=== PATIENT | female | born 1950 | race Caucasian/White ===

== ENCOUNTER 2016-10-24 11:41 | Emergency (ER) | payer BC, MEDICARE ==
[~2016-10-24] VITALS: Ht 160 cm; Wt 77.1 kg
[2016-10-24] MEDS ORDERED: XANA0.5T PO (11:53)
[2016-10-24] MEDS ORDERED: BACL-67 PO (11:53)
[2016-10-24] MEDS ORDERED: TRAZ50TA4 PO (11:53)
[2016-10-24] MEDS ORDERED: HYDR-3713 PO (11:53)
[2016-10-24] MEDS ORDERED: KETOROLAC 60 MG/2 ML VIAL (J1885) IM ONE (12:30)
--- NOTE | 2016-10-24 12:53 | REP ---
Clinical: Fall. Contusion. Technique: Frontal view of the chest with multiple views of the right hemithorax. Findings: Nondisplaced posterolateral right sixth and seventh rib fractures identified. Mediastinum and cardiac silhouette normal. No obvious consolidation/contusion, effusion, or pneumothorax. Impression: Acute posterolateral right sixth and seventh rib fractures. Signed by Carlton Wright MD 10/24/2016 12:45 P
--- NOTE | 2016-10-24 12:55 | REP ---
Clinical: Trauma. Fall. Technique: AP and frog lateral views of the right femur. Findings: Age-related degenerative changes at the hip and knee joint. No acute fracture or dislocation. Impression: No acute fracture or dislocation. Signed by Carlton Wright MD 10/24/2016 12:47 P
--- NOTE | 2016-10-24 12:57 | REP ---
Clinical: Trauma. Fall. Technique: AP and lateral views of the right tibia / fibula. Findings: Moderate early advanced tricompartmental osteoarthritic degenerative changes to the knee. No acute fracture or dislocation identified. Impression: No acute fracture or dislocation. Signed by Carlton Wright MD 10/24/2016 12:49 P
--- NOTE | 2016-10-24 13:53 | REP ---
Clinical: Trauma. Rib fractures. Findings: Nondisplaced lateral right sixth, seventh, and eighth rib fractures identified. The bilateral lung lechuga are well-aerated and clear. No pulmonary parenchymal consolidation/contusion, effusion, or pneumothorax. Tracheobronchial tree is patent. The mediastinum is unremarkable. Limited upper abdomen demonstrates prior cholecystectomy and gastric bypass surgery along with 3 cm left adrenal myolipoma. Impression: 1. Nondisplaced lateral right 6th - 8th rib fractures. 2. No associated mediastinal or pleuroparenchymal process. 3. 3 cm left adrenal benign myolipoma. Signed by Carlton Wright MD 10/24/2016 01:45 P
[2016-10-24] MEDS ORDERED: PERCOCET 5MG/325MG TAB PO ONE (14:00)
[2016-10-24] MEDS ORDERED: PERC5TAB6 PO (15:30)
[2016-10-24 16:13] VITALS: BP 113/61
[2016-10-24] MEDS ORDERED: CALCIUM CARBONATE 500 MG CHEW U/D PO ONE (16:15)
== END 2016-10-24 16:18 | disposition home or self-care (01) ==
LOC: M ED 12:32
DX: S22.41XA Multiple fractures of ribs, right side, initial encounter for closed fracture (principal); S80.11XA Contusion of right lower leg, initial encounter; S80.12XA Contusion of left lower leg, initial encounter; W10.8XXA Fall (on) (from) other stairs and steps, initial encounter; Y92.099 Unspecified place in other non-institutional residence as the place of occurrence of the external cause; Y93.01 Activity, walking, marching and hiking; Y99.9 Unspecified external cause status
CPT/HCPCS: 71101; 71250; 73552; 73590; 94010; 96372; 99283; J1885

== ENCOUNTER 2016-11-03 16:44 | Emergency (ER) | payer MEDICARE ==
[~2016-11-03] VITALS: Ht 162.6 cm; Wt 79.4 kg
[~2016-11-03 16:44] MED LIST: BACL-67 PO; HYDR-3713 PO; PERC5TAB6 PO; TRAZ50TA4 PO; XANA0.5T PO
[2016-11-03] MEDS ORDERED: BACT800T5 PO (16:49)
--- NOTE | 2016-11-03 18:11 | REP ---
LEFT LOWER EXTREMITY DOPPLER VENOUS ULTRASOUND: 11/03/2016: Clinical history: Lower extremity pain, swelling upper calf after a fall.Comparison: None Technique: The deep venous system of the left lower extremity is evaluated with catrer scale imaging, compression ultrasound, color imaging and duplex Doppler interrogation. Examination from the groin through the popliteal fossa into the proximal calf. Findings: There is full compressibility from the common femoral vein in the inguinal region through the popliteal vein. Color imaging confirms patency throughout the course of the deep venous system. There is respiratory variation and augmented flow at all levels. There was limited compression of the distal SFV due to poor patient tolerance. No evidence of DVT. In the proximal calf. There is a prominent erythematous swollen region and a skin eschar with a complex fluid collection seen underneath 4.4 x 4.6 x 1.1 cm suggesting a hematoma in the calf. Impression: 1. No Doppler venous ultrasound evidence of DVT in the left lower extremity. 2. Complex fluid collection in the proximal calf near the area of erythema and skin eschar, likely hematoma at 4.6 x 4.4 x 1.1 cm. Signed by Tod Bolanos MD 11/04/2016 02:48 P
[2016-11-03] MEDS ORDERED: CLIN1CAP5 PO (18:53)
[2016-11-03 18:54] VITALS: BP 115/61
== END 2016-11-03 19:05 | disposition home or self-care (01) ==
LOC: M ED 18:04
DX: S81.802A Unspecified open wound, left lower leg, initial encounter (principal); R60.0 Localized edema; W19.XXXA Unspecified fall, initial encounter; Y92.89 Other specified places as the place of occurrence of the external cause; Y93.89 Activity, other specified; Y99.9 Unspecified external cause status
CPT/HCPCS: 93971; 99282; G0463

== ENCOUNTER → 2016-11-23 | Outpatient (REF) | payer MEDICARE ==
[~2016-11-23] MED LIST changes: +BACT800T5 PO; +CLIN1CAP5 PO
[2016-11-23 17:50] LABS: MEAN CORPUSCULAR HEMOGLOBIN 31.9 pg (27.0-33.0); MEAN CORPUSCULAR HGB CONC 33.2 g/dl (32.0-36.5); MEAN CORPUSCULAR VOLUME 96.3 fl (80.0-96.0); RED CELL DISTRIBUTION WIDTH 12.5 % (11.5-14.5); WHITE BLOOD COUNT 8.9 K/mm3 (4.0-10.0)
[2016-11-23 18:14] LABS: ALBUMIN 3.7 GM/DL (3.2-5.2); ALBUMIN/GLOBULIN RATIO 1.23 (1.00-1.93); ALKALINE PHOSPHATASE 99 U/L (45-117); ALT/SGPT 25 U/L (12-78); ANION GAP 8 MEQ/L (8-16); AST/SGOT 17 U/L (15-37); BILIRUBIN,TOTAL 0.4 MG/DL (0.2-1.0); BLOOD UREA NITROGEN 11 MG/DL (7-18); CALCIUM LEVEL 9.2 MG/DL (8.8-10.2); CARBON DIOXIDE LEVEL 30 MEQ/L (21-32); CHLORIDE LEVEL 105 MEQ/L (98-107); CHOLESTEROL LEVEL 168 MG/DL (<200); CREATININE FOR GFR 0.75 MG/DL (0.55-1.02); GLOMERULAR FILTRATION RATE > 60.0 (>45); GLUCOSE, FASTING 94 MG/DL (80-110); SODIUM LEVEL 143 MEQ/L (136-145); TOTAL PROTEIN 6.7 GM/DL (6.4-8.2); TRIGLYCERIDES LEVEL 119 MG/DL (<150)
[2016-11-23 19:39] LABS: BASOPHILS 3 % (0-4); EOSINOPHILS 2 % (0-5)
== END ==
LOC: M SFHCLERA 08:53
PROVIDERS: ATTEND Family Medicine
DX: L03.90 Cellulitis, unspecified (principal); E78.00 Pure hypercholesterolemia, unspecified; F17.200 Nicotine dependence, unspecified, uncomplicated; G89.29 Other chronic pain; G47.01 Insomnia due to medical condition
CPT/HCPCS: 80053; 80061; 83036; 85007; 85027; G0463

== ENCOUNTER → 2017-10-07 | Outpatient (REF) | payer MEDICARE ==
[2017-10-07 20:32] LABS: HEMATOCRIT 40.2 % (36.0-47.0); HEMOGLOBIN 13.1 g/dl (12.0-16.0); MEAN CORPUSCULAR HEMOGLOBIN 30.8 pg (27.0-33.0); MEAN CORPUSCULAR HGB CONC 32.6 g/dl (32.0-36.5); MEAN CORPUSCULAR VOLUME 94.4 fl (80.0-96.0); PLATELET COUNT, AUTOMATED 263 10^3/uL (150-450); RED BLOOD COUNT 4.26 10^6/uL (4.00-5.40); RED CELL DISTRIBUTION WIDTH 12.9 % (11.5-14.5); WHITE BLOOD COUNT 12.2 10^3/uL (4.0-10.0)
[2017-10-07 21:37] LABS: ALBUMIN 3.8 GM/DL (3.2-5.2); ALBUMIN/GLOBULIN RATIO 1.27 (1.00-1.93); ALKALINE PHOSPHATASE 72 U/L (45-117); ALT/SGPT 21 U/L (12-78); AMYLASE 42 U/L (25-115); ANION GAP 7 MEQ/L (8-16); AST/SGOT 14 U/L (7-37); BILIRUBIN,TOTAL 0.3 MG/DL (0.2-1.0); BLOOD UREA NITROGEN 18 MG/DL (7-18); CALCIUM LEVEL 9.1 MG/DL (8.8-10.2); CARBON DIOXIDE LEVEL 29 MEQ/L (21-32); CHLORIDE LEVEL 109 MEQ/L (98-107); CREATININE FOR GFR 0.86 MG/DL (0.55-1.30); GLOMERULAR FILTRATION RATE > 60.0 (>45); GLUCOSE, FASTING 68 MG/DL (70-100); LIPASE 109 U/L (73-393); POTASSIUM SERUM 4.6 MEQ/L (3.5-5.1); SODIUM LEVEL 145 MEQ/L (136-145); TOTAL PROTEIN 6.8 GM/DL (6.4-8.2)
== END ==
LOC: M SFHCLERA 18:11
DX: R10.13 Epigastric pain (principal)
CPT/HCPCS: 82150

== ENCOUNTER → 2017-10-12 | Outpatient (REF) | payer MEDICARE ==
[2017-10-15 00:06] LABS: H PYLORI STOOL ANTIGEN Negative (Negative)
== END ==
LOC: M SFHCLERA 16:23
DX: R10.11 Right upper quadrant pain (principal)
CPT/HCPCS: 87338

== ENCOUNTER → 2017-10-14 | Outpatient (CLI) | payer MEDICARE | LOC: M RAD 07:22 | DX: R10.9 Unspecified abdominal pain (principal) | CPT/HCPCS: 76705 ==

== ENCOUNTER → 2017-10-27 | Outpatient (CLI) | payer MEDICARE ==
[~2017-10-27] MED LIST changes: -BACL-67 PO; -BACT800T5 PO; -CLIN1CAP5 PO; +GASTROGRAFIN SOLUTION 30ML (Q9963) As Ordered; -HYDR-3713 PO; +ISOVUE-370 76% 100ML VIAL (Q9967) As Ordered; -PERC5TAB6 PO; -TRAZ50TA4 PO; -XANA0.5T PO
== END ==
LOC: M RAD 12:02
DX: K76.9 Liver disease, unspecified (principal)
CPT/HCPCS: Q9963

== ENCOUNTER → 2017-11-14 | Outpatient (CLI) | payer MEDICARE | LOC: M RAD 15:23 | DX: Z12.31 Encounter for screening mammogram for malignant neoplasm of breast (principal); Z80.3 Family history of malignant neoplasm of breast; Z78.0 Asymptomatic menopausal state | CPT/HCPCS: 77067 ==

== ENCOUNTER → 2017-12-15 | Outpatient (CLI) | payer MEDICARE | LOC: M RAD 09:43 | DX: M54.2 Cervicalgia (principal) | CPT/HCPCS: 72052 ==

== ENCOUNTER → 2018-03-09 | Outpatient (CLI) | payer MEDICARE | LOC: M LRY 16:48 | DX: M16.11 Unilateral primary osteoarthritis, right hip (principal); M17.11 Unilateral primary osteoarthritis, right knee; S79.911A Unspecified injury of right hip, initial encounter; S70.01XA Contusion of right hip, initial encounter; S89.91XA Unspecified injury of right lower leg, initial encounter; W18.09XA Striking against other object with subsequent fall, initial encounter; Y92.9 Unspecified place or not applicable | CPT/HCPCS: 73502; G0463 ==

== ENCOUNTER → 2018-05-16 | Outpatient (REF) | payer MEDICARE | LOC: M SFHCLERA 14:43 | DX: N90.89 Other specified noninflammatory disorders of vulva and perineum (principal) | CPT/HCPCS: 87529 ==

== ENCOUNTER → 2018-06-26 | Outpatient (REF) | payer MEDICARE ==
[2018-06-30 14:15] LABS: HPV LOW VOL RFLX Negative (Negative)
== END ==
LOC: M LAB REF 09:06
DX: Z12.4 Encounter for screening for malignant neoplasm of cervix (principal)
CPT/HCPCS: G0123

== ENCOUNTER → 2018-07-22 | Outpatient (REF) | payer MEDICARE ==
[~2018-07-22] MED LIST changes: +BACL1TAB9 PO; +BACT800T5 PO; +CLIN150C14 PO; -GASTROGRAFIN SOLUTION 30ML (Q9963) As Ordered; +HYDR-3713 PO; -ISOVUE-370 76% 100ML VIAL (Q9967) As Ordered; +PERC5TAB12 PO; +TRAZ-160 PO; +XANA0.5T PO
== END ==
LOC: M SFHCLERA 10:43
PROVIDERS: ATTEND Nurse Practitioner Family
DX: R19.7 Diarrhea, unspecified (principal)
CPT/HCPCS: 81002; 87086; G0463

== ENCOUNTER → 2018-10-02 | Outpatient (REF) | payer MEDICARE ==
[2018-10-02 16:37] LABS: FERRITIN 93 NG/ML (8-252)
[2018-10-02 16:39] LABS: FOLATE > 24.0 NG/ML; VITAMIN B12 LEVEL 395 PG/ML
[2018-10-02 16:41] LABS: BASO % 0.4 % (0.0-1.0); EOS # 0.1 10^3/uL (0.0-0.50); HEMATOCRIT 41.7 % (36.0-47.0); HEMOGLOBIN 13.5 g/dl (12.0-15.5); LYMPH # 2.6 10^3/uL (1.5-4.5); LYMPH % 28.7 % (24.0-44.0); MEAN CORPUSCULAR HEMOGLOBIN 30.9 pg (27.0-33.0); MEAN CORPUSCULAR HGB CONC 32.4 g/dl (32.0-36.5); MEAN CORPUSCULAR VOLUME 95.4 fl (80.0-96.0); MONO # 0.6 10^3/uL (0.0-0.8); MONO % 7.1 % (0.0-5.0); NEUTROPHILS # 5.6 10^3/uL (1.8-7.7); NEUTROPHILS % 62.5 % (36.0-66.0); PLATELET COUNT, AUTOMATED 235 10^3/uL (150-450); RED BLOOD COUNT 4.37 10^6/uL (4.00-5.40); WHITE BLOOD COUNT 8.9 10^3/uL (4.0-10.0)
== END ==
LOC: M SFHCLERA 10:49
PROVIDERS: ATTEND Family Medicine
DX: Z98.84 Bariatric surgery status (principal); K91.2 Postsurgical malabsorption, not elsewhere classified; F17.210 Nicotine dependence, cigarettes, uncomplicated; Z86.79 Personal history of other diseases of the circulatory system
CPT/HCPCS: 82306; 82607; 82728; 82746; 84425; 84443; 85025; G0463; G8483

== ENCOUNTER → 2019-03-15 | Outpatient (CLI) | payer MEDICARE ==
[~2019-03-15] MED LIST changes: -TRAZ-160 PO; +TRAZ-252 PO
--- NOTE | 2019-03-15 13:51 | REP ---
REASON: Left rib pain after trauma. No prior left rib series for comparison. The bones are demineralized to such a degree a subtle hairline fracture could be obscured. There is no evidence of a gross rib fracture. The accompanying frontal view of the chest is unchanged compared to the prior exam of 10/24/2016. There is no evidence of acute disease. IMPRESSION: No evidence of an acute rib fracture on this limited exam. If pain continues consider followup or even chest CT. Electronically Signed by Steve Silverman DO 03/15/2019 03:05 P
== END ==
LOC: M RAD 11:53
DX: R07.81 Pleurodynia (principal)

== ENCOUNTER → 2019-04-17 | Outpatient (CLI) | payer MEDICARE ==
[~2019-04-17] MED LIST changes: +PROHANCE 279.3MG/ML 15ML VIAL (A9576) As Ordered ONE
--- NOTE | 2019-04-18 06:31 | REP ---
MRI LUMBAR SPINE WITHOUT AND WITH IV CONTRAST: HISTORY: Radiculopathy. Left-sided hip and leg pain. Prior lumbar spine surgery in 2010. TECHNIQUE: Sagittal and axial T1- and T2-weighted scans are acquired in the usual fashion with and without fat saturation. Sequences include spin echo, turbo spin echo, and STIR imaging sequences. Gadolinium enhancement dose is 13 mL of intravenous ProHance. FINDINGS: Transpedicular screw and interconnecting clinton fixation surgery has been performed bilaterally L4-S1. L4-5 and L5-S1 laminectomy has been performed. There is postoperative widening of the thecal sac at these levels. Metallic field susceptibility artifact is seen emanating from the metallic hardware. There is no evidence of disc herniation or central canal stenosis at the L5-S1 or L4-5. At L3-4, there is no evidence of disc protrusion. There is ligamentum flavum and facet hypertrophy bilaterally. No central canal stenosis or foraminal narrowing is seen. At the L2-3 disc level there is mild degenerative disc narrowing and diffuse disc bulging. This subtly indents the ventral margin of the thecal sac. No central canal stenosis is seen. There is mild bilateral ligamentum flavum hypertrophy at L2-3. No foraminal narrowing is seen. At L1-2, there is no significant disc protrusion. There is mild disc bulging and T12-L1. The tip of the conus medullaris is normal in position and appearance at L1. Postcontrast images show no abnormal or significant contrast enhancement. Incidental note is made of cortical cysts affecting the kidneys bilaterally. Common bile duct is somewhat prominent post cholecystectomy at 13 mm. This is similar to CT study October 27, 2017. The cysts in the kidneys appear unchanged. IMPRESSION: Status post L4-S1 bilateral fusion and lumbar laminectomy. Facet and ligamentum flavum hypertrophy noted at the L3-4 and L2-3. No focal disc protrusion is seen. Electronically Signed by Daryl Fletcher MD 04/18/2019 08:11 A
== END ==
LOC: M RAD 17:21
PROVIDERS: ATTEND Pain Medicine Interventional Pain Medicine
DX: M54.17 Radiculopathy, lumbosacral region (principal)
CPT/HCPCS: 72158; A9576

== ENCOUNTER → 2019-04-26 | Outpatient (CLI) | payer MEDICARE ==
[~2019-04-26] MED LIST changes: -PROHANCE 279.3MG/ML 15ML VIAL (A9576) As Ordered ONE
--- NOTE | 2019-04-26 08:49 | REP ---
Cervical spine series: Limited study three views. History: Neck pain. History of surgery in 2007. Comparison study: December 15, 2017. Findings: The patient is status post ventral discectomy and fusion plating across the C five through C7 levels. Good bony fusion of the disc spaces is observed and alignment is normal. There is some straightening. There are degenerative disc changes at C4-5 with anterior spurring and to a lesser extent at C3-4. These findings are unchanged radiographically. AP and open mouth odontoid views demonstrate osteoarthritic facet hypertrophy in the mid cervical spine bilaterally also unchanged from the December 15, 2017 study. Impression: Degenerative spondylosis changes. Status post C5-C7 ventral discectomy and fusion. Electronically Signed by Drayl Fletcher MD 04/26/2019 09:29 A
== END ==
LOC: M LRY 07:52
PROVIDERS: ATTEND Family Medicine
DX: M50.31 Other cervical disc degeneration, high cervical region (principal); M50.321 Other cervical disc degeneration at C4-C5 level
CPT/HCPCS: 72040; G0463

== ENCOUNTER → 2019-09-17 | Outpatient (REF) | payer MEDICARE ==
[2019-09-17 20:26] LABS: BASO # 0.1 10^3/uL (0.0-0.2); BASO % 0.6 % (0.0-1.0); EOS # 0.2 10^3/uL (0.0-0.5); EOS % 1.6 % (0.0-3.0); HEMATOCRIT 41.7 % (36.0-47.0); HEMOGLOBIN 13.4 g/dl (12.0-15.5); LYMPH # 3.6 10^3/uL (1.5-5.0); LYMPH % 35.3 % (24.0-44.0); MEAN CORPUSCULAR HEMOGLOBIN 30.3 pg (27.0-33.0); MEAN CORPUSCULAR HGB CONC 32.1 g/dl (32.0-36.5); MEAN CORPUSCULAR VOLUME 94.3 fl (80.0-96.0); MONO # 0.8 10^3/uL (0.0-0.8); MONO % 7.8 % (0.0-5.0); NEUTROPHILS # 5.5 10^3/uL (1.5-8.5); NEUTROPHILS % 54.4 % (36.0-66.0); PLATELET COUNT, AUTOMATED 236 10^3/uL (150-450); RED BLOOD COUNT 4.42 10^6/uL (4.00-5.40); WHITE BLOOD COUNT 10.2 10^3/uL (4.0-10.0)
[2019-09-17 20:33] LABS: ALBUMIN 3.7 GM/DL (3.2-5.2); ALT/SGPT 23 U/L (12-78); BILIRUBIN,TOTAL 0.4 MG/DL (0.2-1.0); BLOOD UREA NITROGEN 15 MG/DL (7-18); CALCIUM LEVEL 9.1 MG/DL (8.8-10.2); CARBON DIOXIDE LEVEL 30 MEQ/L (21-32); CHLORIDE LEVEL 110 MEQ/L (98-107); CREATININE FOR GFR 0.66 MG/DL (0.55-1.30); GLOMERULAR FILTRATION RATE > 60.0 (>45); GLUCOSE, FASTING 74 MG/DL (70-100); IRON (FE) 58 UG/DL (50-170); PERCENT SATURATION 18.6 % (13.2-45.0); POTASSIUM SERUM 4.1 MEQ/L (3.5-5.1); SODIUM LEVEL 143 MEQ/L (136-145); TOTAL IRON BINDING CAPACITY 312 UG/DL (250-450); TOTAL PROTEIN 6.6 GM/DL (6.4-8.2)
[2019-09-18 10:00] LABS: TOTAL 25(OH) VITAMIN D 47.1 NG/ML (30.0-100.0)
[2019-09-18 10:01] LABS: VITAMIN B12 LEVEL 377 PG/ML (247-911)
[2019-09-19 11:42] LABS: RUBELLA IgG QUALITATIVE IMMUNE (IMMUNE)
== END ==
LOC: M SFHCLERA 14:25
PROVIDERS: ATTEND Family Medicine
DX: Z98.84 Bariatric surgery status (principal); Z11.59 Encounter for screening for other viral diseases; Z79.899 Other long term (current) drug therapy; Z23 Encounter for immunization
CPT/HCPCS: 80053; 82306; 82607; 83550; 84425; 84630; 85025; 86580; 86762; 90472; 90670; 90715; G0009; G0463

== ENCOUNTER → 2019-11-01 | Outpatient (CLI) | payer MEDICARE ==
--- NOTE | 2019-11-01 10:48 | REP ---
Right ankle series: Five views. History: No known injury. Swelling of the right ankle. Comparison is made with right tib-fib radiographs from October 24, 2016. There are findings: There is plantar and Achilles calcaneal spurring. There is mild talonavicular spurring visible on the lateral film. There is medial and lateral soft tissue swelling. Ankle mortise is intact. There is well corticated bony hypertrophy of the medial malleolus along its cortical margin. This appears to have been present previously and may be old post-traumatic change. It is not acute finding. No periosteal reaction or bony destructive lesion is seen. Impression: Heel spurring and mild midfoot spurring. No acute bony abnormality. Medial and lateral soft tissue swelling. Electronically Signed by Daryl Fletcher MD 11/01/2019 10:39 A
== END ==
LOC: M LRY 10:10
PROVIDERS: ATTEND Physician Assistant
DX: M25.471 Effusion, right ankle (principal)
CPT/HCPCS: 73610; G0463

== ENCOUNTER 2020-02-22 16:42 | Emergency (ER) | payer MEDICARE ==
[2020-02-22] MEDS ORDERED: ISOVUE-370 76% 100ML VIAL ONE (20:48)
[2020-03-30 17:08] LABS: BASO % 0.4 % (0.0-1.0); EOS # 0.1 10^3/uL (0.0-0.5); HEMATOCRIT 41.7 % (36.0-47.0); HEMOGLOBIN 13.6 g/dl (12.0-15.5); MEAN CORPUSCULAR HEMOGLOBIN 30.3 pg (27.0-33.0); MEAN CORPUSCULAR HGB CONC 32.6 g/dl (32.0-36.5); MEAN CORPUSCULAR VOLUME 92.9 fl (80.0-96.0); MONO # 0.7 10^3/uL (0.0-0.8); MONO % 7.7 % (0.0-5.0); NEUTROPHILS # 5.4 10^3/uL (1.5-8.5); NEUTROPHILS % 58.6 % (36.0-66.0); PLATELET COUNT, AUTOMATED 239 10^3/uL (150-450); RED BLOOD COUNT 4.49 10^6/uL (4.00-5.40); WHITE BLOOD COUNT 9.3 10^3/uL (4.0-10.0)
[2020-03-30 18:09] LABS: INR 0.94; PARTIAL THROMBOPLASTIN TIME 31.8 SECONDS (25.0-38.4); PROTHROMBIN TIME 12.7 SECONDS (11.8-14.0)
--- NOTE | 2020-04-10 17:27 | ECGEPIP ---
SINUS BRADYCARDIA RBBB PRWP SEE SCANNED DOWNTIME REPORT MTDD
--- NOTE | 2020-04-14 10:12 | REP ---
SINGLE VIEW CHEST: HISTORY: Rule out pulmonary embolus. Shortness of breath. This report was delayed due to a malware attack on this facility. FINDINGS: A screw plate fixation device is seen in the lower cervical spine. EKG monitoring electrodes are noted overlying the chest. A dextroconvex curvature is seen in the thoracic spine. No other bony abnormality is seen. The lungs are symmetrically aerated and free of infiltrate. The pleural angles are sharp. The heart is not felt to be enlarged. The pulmonary vasculature is not increased. IMPRESSION: No active cardiopulmonary disease. MTDD
[2020-05-03 10:54] LABS: ALBUMIN 3.6 GM/DL (3.2-5.2); ALT/SGPT 21 U/L (12-78); BILIRUBIN,DIRECT 0.1 MG/DL (0.0-0.2); BILIRUBIN,TOTAL 0.3 MG/DL (0.2-1.0); BLOOD UREA NITROGEN 13 MG/DL (7-18); CALCIUM LEVEL 9.3 MG/DL (8.8-10.2); CARBON DIOXIDE LEVEL 29 MEQ/L (21-32); CHLORIDE LEVEL 108 MEQ/L (98-107); CK-MB VALUE MASS 1.1 NG/ML (<3.6); CPK CREATINE PHOSPHOKINASE 52 U/L (26-192); GLOMERULAR FILTRATION RATE > 60.0 (>45); GLUCOSE, FASTING 81 MG/DL (70-100); LIPASE 80 U/L (73-393); MB/CK RELATIVE INDEX 2.12 (< OR =4); POTASSIUM SERUM 4.1 MEQ/L (3.5-5.1); SODIUM LEVEL 141 MEQ/L (136-145); TOTAL PROTEIN 6.8 GM/DL (6.4-8.2); TROPONIN I < 0.02 NG/ML (< 0.10)
== END 2020-02-23 00:50 | disposition home or self-care (01) ==
LOC: M ED 16:42
DX: R07.89 Other chest pain (principal); R06.02 Shortness of breath; Z98.84 Bariatric surgery status; F17.210 Nicotine dependence, cigarettes, uncomplicated
CPT/HCPCS: 36415; 71045; 71275; 73564; 80048; 80076; 82550; 82553; 83690; 84484; 85025; 85610; 85730; 93005; 99284; Q9967

== ENCOUNTER → 2020-03-25 | Outpatient (REF) | payer MEDICARE ==
[2020-04-01 16:12] LABS: METANEPHRINE PLASMA 19.9 pg/mL (0.0-88.0); NORMETANEPHRINE PLASMA 66.2 pg/mL (0.0-191.8)
== END ==
LOC: M LABDRAWC 12:54
PROVIDERS: ATTEND Internal Medicine Cardiovascular Disease
DX: D44.12 Neoplasm of uncertain behavior of left adrenal gland (principal)

== ENCOUNTER → 2020-03-26 | Outpatient (CLI) | payer MEDICARE ==
--- NOTE | 2020-04-04 10:41 | SLEEPHOME ---
DATE: 03/26/2020 ORDERED BY: Dr. Altamirano Diagnostic home sleep testing was performed due to concern for the obstructive sleep apnea syndrome in this patient with a history of snoring. For testing, a nocturnal T3 respiratory monitoring device was used. Continuous record was made of pulse, oxygen saturation, air flow, chest and abdominal strain, and body position. Nine hours and 59 minutes of data were reviewed. There were 7 hours and 28 minutes marked as time in bed. During the interval marked time in bed, there were 62 respiratory events identified of 10 seconds in duration or greater for a respiratory event index of 8.3. The events were primarily obstructive, 15 mixed and central apneas were noted. Baseline pulse rate 51. Pulse rate ranged 48 to 88. Baseline saturation was 93%. Saturations fell to 90% and testing was performed in both the supine and non-supine positions. IMPRESSION: Abnormal home sleep testing with repetitive respiratory events and oxygen desaturations to 90% with a respiratory event index of 8.3 is consistent with the obstructive sleep apnea syndrome. RECOMMENDATIONS: The patient should be encouraged to undergo formal sleep evaluation. BOBBI
== END ==
LOC: M SLEEP HO 09:56
PROVIDERS: ATTEND Internal Medicine Cardiovascular Disease
DX: R06.83 Snoring (principal)

== ENCOUNTER → 2020-04-03 | Outpatient (REF) | payer MEDICARE | LOC: M LABDRAWC 08:18 | PROVIDERS: ATTEND Internal Medicine Cardiovascular Disease | DX: Z79.899 Other long term (current) drug therapy (principal) ==

== ENCOUNTER → 2020-05-14 | Outpatient (REF) | payer MEDICARE ==
[2020-05-14 18:34] LABS: ALBUMIN 3.5 GM/DL (3.2-5.2); ALT/SGPT 19 U/L (12-78); BILIRUBIN,DIRECT < 0.1 MG/DL (0.0-0.2); BILIRUBIN,TOTAL 0.3 MG/DL (0.2-1.0); RHEUMATOID FACTOR QUANT < 10.0 IU/ML (<15.0); TOTAL PROTEIN 6.7 GM/DL (6.4-8.2)
[2020-05-19 17:06] LABS: ANCA-ATYPICAL <1:20 titer (Neg:<1:20); ANTI DOUBLE STRAND-DNA AB 2 IU/mL (0-9); ANTI DS-DNA AB Negative (Negative); ANTINUCLEAR ANTIBODIES DIRECT Positive (Negative); CYTOPLASMIC NEUTROP AB ANCA-C <1:20 titer (Neg:<1:20); PERINUCLEAR AB ANCA-P <1:20 titer (Neg:<1:20); SJOGREN'S ANTI SS-A <0.2 AI (0.0-0.9); SJOGREN'S ANTI SS-B <0.2 AI (0.0-0.9); SMITH ANTIBODIES <0.2 AI (0.0-0.9)
== END ==
LOC: M LAB REF 17:02
PROVIDERS: ATTEND Physician Assistant
DX: I27.20 Pulmonary hypertension, unspecified (principal)

== ENCOUNTER → 2020-05-18 | Outpatient (CLI) | payer MEDICARE ==
--- NOTE | 2020-05-21 08:50 | SLEEPCENT ---
DATE: 05/18/2020 ORDERED BY: TOMMIE Alaniz Nocturnal polysomnography was performed for the titration of pressure therapy in this patient with a clinical diagnosis of obstructive sleep apnea syndrome confirmed by home testing revealing a respiratory event index of 8.3. For testing, the patient was fit with a ResMed Airfit P10 nasal pillows device of medium size and 4 cm of water pressure were applied to the circuit and the lights were extinguished. Seven hours and 53 minutes of data were reviewed. There were 385.5 minutes of sleep identified. Sleep latency was mildly prolonged at 57.5 minutes. REM latency was short at 69 minutes. Sleep architecture was good with 4 REM cycles. Overall sleep efficiency was 82.5%. The electrocardiogram showed a sinus rhythm with an average heart rate of 52 beats per minute. EEG showed normal waveforms for wake and sleep. Best sleep was appreciated on a CPAP pressure of +5 and remaining measures of sleep physiology were normal. IMPRESSION: Obstructive sleep apnea syndrome (G47.33). RECOMMENDATION: Nightly use of pressure therapy 5 cm of water. MTDD
== END ==
LOC: M SLEEP 20:00
PROVIDERS: ATTEND Physician Assistant
DX: G47.33 Obstructive sleep apnea (adult) (pediatric) (principal)

== ENCOUNTER → 2020-08-21 | Outpatient (REF) | payer MEDICARE ==
[~2020-08-21] MED LIST changes: -CLIN150C14 PO; +CLIN150C15 PO
[2020-08-22 11:56] LABS: BLOOD UREA NITROGEN 13 MG/DL (7-18); CALCIUM LEVEL 9.8 MG/DL (8.8-10.2); CARBON DIOXIDE LEVEL 32 MEQ/L (21-32); CHLORIDE LEVEL 105 MEQ/L (98-107); CREATININE FOR GFR 0.86 MG/DL (0.55-1.30); GLOMERULAR FILTRATION RATE > 60.0 (>45); GLUCOSE, FASTING 85 MG/DL (70-100); POTASSIUM SERUM 4.9 MEQ/L (3.5-5.1); SODIUM LEVEL 142 MEQ/L (136-145)
== END ==
LOC: M LABDRAWC 11:08
PROVIDERS: ATTEND Internal Medicine Cardiovascular Disease
DX: I49.1 Atrial premature depolarization (principal); I49.3 Ventricular premature depolarization

== ENCOUNTER → 2020-11-20 | Outpatient (CLI) | payer MEDICARE ==
--- NOTE | 2020-11-20 13:08 | REP ---
INDICATION: RT SIDED POINT TENDERNESS OF RIB. COMPARISON: Frontal view of the chest 02/22/2020 no prior rib series TECHNIQUE: Four views of the right ribs with frontal view of the chest FINDINGS: The frontal view the chest shows mild cardiomegaly status quo. Lung lechuga are clear and the pleural angles are sharp. Technique is suboptimal limiting evaluation of the right lower ribs. There is no evidence of acute fracture or destructive osseous lesion. IMPRESSION: Negative right rib series with limitations as described above. <Electronically signed by Steve Silverman > 11/20/20 [id number]
== END ==
LOC: M CLY 10:40
PROVIDERS: ATTEND Nurse Practitioner Family
DX: R10.9 Unspecified abdominal pain (principal); F41.1 Generalized anxiety disorder

== ENCOUNTER → 2020-12-16 | Outpatient (CLI) | payer MEDICARE ==
--- NOTE | 2020-12-16 15:19 | REPVR ---
PROCEDURE INFORMATION: Exam: MR Lumbar Spine Without and With Contrast Exam date and time: 12/16/2020 1:00 PM Age: 70 years old Clinical indication: Low back pain; Prior surgery; Surgery date: 6+ months; Additional info: Lbp TECHNIQUE: Imaging protocol: Multiplanar magnetic resonance images of the lumbar spine without and with intravenous contrast. Contrast material: PROHANCE; Contrast volume: 16 ml; Contrast route: INTRAVENOUS (IV); COMPARISON: MRI-LS SPINE W/O FOLL WITH CON 04/17/2019 6:10 PM FINDINGS: Vertebrae: Unremarkable. Spinal cord: The conus medullaris is normal. L1-L2: No significant disc disease. No significant spinal canal stenosis. No neural foraminal stenosis. L2-L3: The L2-L3 level demonstrates a mild diffuse posterior disc herniation.There is mild bilateral facet arthropathy. There is no nerve root compression. L3-L4: The L3-L4 level shows no evidence of a significant posterior disc herniation.There is moderate bilateral facet arthropathy. There is no nerve root compression. L4-L5: There is pedicle screw fixation from L4 through S1. Disc spacers are seen at these levels and there has been posterior unroofing. There is moderate bilateral facet arthropathy. There is no nerve root compression. There are no regions of abnormal enhancement. L5-S1: See L4-L5 Soft tissues: Unremarkable. Gallbladder and bile ducts: The common bile duct is dilated at 12 mm with no distal obstructing lesion demonstrated. Kidneys and ureters: There are innumerable bilateral renal cortical cysts suggesting the possibility of polycystic renal disease. There is a cyst protruding from the lower pole of the right kidney with intermediate T1 and low T2 signal probably reflecting blood products. There is a gravitational air of low T2 signal and at least 1 cyst on axial image 5. No masses are identified. Other findings: The lower thoracic and upper lumbar levels show no evidence of significant disc space narrowing, disc herniations, foraminal stenosis or canal compromise. IMPRESSION: 1. The common bile duct is dilated at 12 mm with no distal obstructing lesion demonstrated. 2. The L2-L3 level demonstrates a mild diffuse posterior disc herniation.There is mild bilateral facet arthropathy. There is no nerve root compression. 3. The L3-L4 level shows no evidence of a significant posterior disc herniation.There is moderate bilateral facet arthropathy. There is no nerve root compression. 4. There is pedicle screw fixation from L4 through S1. Disc spacers are seen at these levels and there has been posterior unroofing. There is moderate bilateral facet arthropathy. There is no nerve root compression. Electronically signed by: Ok Lancaster On 12/16/2020 15:18:53 PM
== END ==
LOC: M PLARAD 10:21
PROVIDERS: ATTEND Physician Assistant Surgical
DX: M54.17 Radiculopathy, lumbosacral region (principal)

== ENCOUNTER → 2021-04-07 | Outpatient (CLI) | payer MEDICARE ==
[~2021-04-07] MED LIST changes: -CLIN150C15 PO; +CLIN150C17 PO
== END ==
LOC: M RAD 10:23
PROVIDERS: ATTEND Internal Medicine Pulmonary Disease
DX: R91.1 Solitary pulmonary nodule (principal); Z87.891 Personal history of nicotine dependence

== ENCOUNTER → 2021-05-18 | Outpatient (CLI) | payer MEDICARE ==
--- NOTE | 2021-05-18 18:35 | REP ---
INDICATION: DIAGNOSING LUNG CANCER. COMPARISON: None. TECHNIQUE: 8.7 mCi of FDG 18 was administered intravenously, via the left hand. After an appropriate uptake period, PET-CT was performed from the skull base to the pubic symphysis. FINDINGS: Head and neck: There is a normal distribution of FDG activity in the visualized brain parenchyma. There is no cervical lymphadenopathy. The thyroid gland is enlarged. There is a 10 mm in diameter hypodense nodule in the left thyroid lobe. Chest: There is a 13 x 9 mm soft tissue density nodule in the inferior segment of the lingula. The nodule does not appear significantly changed since the chest CT examination of 02/22/2020. The nodule demonstrates minimal FDG activity, max SUV 1.8. There are no pleural effusions. The heart is enlarged. There is no pericardial effusion. There is minimal calcific vascular disease of the thoracic aorta and coronary arteries. 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 Abdomen and pelvis: There is calcific vascular disease of the abdominal aorta. The gallbladder is surgically absent. Status post gastric sleeve surgery. There is colonic diverticulosis without diverticulitis. Musculoskeletal: There are no lytic, sclerotic or areas of abnormal FDG activity within the visualized axial and appendicular skeleton. Status post anterior interbody fusion, C5-C7. Status post posterior lumbar interbody fusion, L4 through S1. IMPRESSION: 1. There are no foci of abnormal FDG activity to suggest neoplastic disease. 2. Soft tissue density nodule in the lingula demonstrates FDG activity consistent with inflammation/scar. 3. Other findings as noted. <Electronically signed by Az Taylor > 05/18/21 [id number]
== END ==
LOC: M PLARAD 10:29
PROVIDERS: ATTEND Nurse Practitioner Family
DX: R91.1 Solitary pulmonary nodule (principal)
CPT/HCPCS: 78815; A9552

== ENCOUNTER → 2021-09-04 | Outpatient (CLI) | payer MEDICARE ==
[~2021-09-04] MED LIST changes: +GASTROGRAFIN SOLUTION 30ML (Q9963) As Ordered ONE; +ISOVUE-370 76% 100ML VIAL As Ordered ONE
== END ==
LOC: M RAD 09:19
PROVIDERS: ATTEND Specialist
DX: R10.2 Pelvic and perineal pain (principal); D35.00 Benign neoplasm of unspecified adrenal gland; K44.9 Diaphragmatic hernia without obstruction or gangrene; N28.1 Cyst of kidney, acquired; Z98.84 Bariatric surgery status
CPT/HCPCS: 74178; Q9963; Q9967

== ENCOUNTER → 2021-11-18 | Outpatient (CLI) | payer MEDICARE ==
[~2021-11-18] MED LIST changes: -GASTROGRAFIN SOLUTION 30ML (Q9963) As Ordered ONE; -ISOVUE-370 76% 100ML VIAL As Ordered ONE
== END ==
LOC: M PLAIMG 12:21
PROVIDERS: ATTEND Internal Medicine Pulmonary Disease
DX: R91.1 Solitary pulmonary nodule (principal)

== ENCOUNTER → 2021-11-20 | Outpatient (CLI) | payer MEDICARE | LOC: M PLARAD 11:56 | PROVIDERS: ATTEND Family Medicine | DX: N28.1 Cyst of kidney, acquired (principal); R93.421 Abnormal radiologic findings on diagnostic imaging of right kidney; R93.422 Abnormal radiologic findings on diagnostic imaging of left kidney ==

== ENCOUNTER → 2021-12-01 | Outpatient (REF) | payer MEDICARE ==
[2021-12-01 12:01] LABS: BLOOD UREA NITROGEN 11 MG/DL (7-18); CREATININE FOR GFR 0.81 MG/DL (0.55-1.30); GLOMERULAR FILTRATION RATE > 60.0 (>39)
== END ==
LOC: M LABDRAWC 11:20
PROVIDERS: ATTEND Internal Medicine Pulmonary Disease
DX: R91.1 Solitary pulmonary nodule (principal)

== ENCOUNTER → 2021-12-03 | Outpatient (REF) | payer MEDICARE ==
[2021-12-03 14:03] LABS: APPEARANCE, URINE CLEAR (CLEAR); BACTERIA, URINE AUTO NEGATIVE (NEGATIVE); BILIRUBIN, URINE AUTO NEGATIVE (NEGATIVE); BLOOD, URINE BLOOD NEGATIVE (NEGATIVE); COLOR, URINE YELLOW (YELLOW); GLUCOSE, URINE (UA) AUTO NEGATIVE (NEGATIVE); KETONE, URINE AUTO NEGATIVE (NEGATIVE); LEUKOCYTE ESTERASE, URINE AUTO NEGATIVE (NEGATIVE); NITRITE, URINE AUTO NEGATIVE (NEGATIVE); PROTEIN, URINE AUTO NEGATIVE (NEGATIVE); RBC, URINE AUTO 0 /HPF (0-3); SPECIFIC GRAVITY URINE AUTO 1.003 (1.002-1.035); SQUAMOUS EPITHELIAL CELL UR AU 0 /HPF (0-6); UROBILINOGEN, URINE AUTO 0.2 mg/dL (0.0-2.0); WBC, URINE AUTO 0 /HPF (0-3)
== END ==
LOC: M SMT 13:03
PROVIDERS: ATTEND Urology
DX: N28.9 Disorder of kidney and ureter, unspecified (principal)

== ENCOUNTER → 2021-12-04 | Outpatient (CLI) | payer MEDICARE ==
[~2021-12-04] MED LIST changes: +ISOVUE-370 76% 100ML VIAL ONE
== END ==
LOC: M PLAIMG 10:30
PROVIDERS: ATTEND Internal Medicine Pulmonary Disease
DX: R91.1 Solitary pulmonary nodule (principal); Z87.891 Personal history of nicotine dependence; K76.89 Other specified diseases of liver; I27.20 Pulmonary hypertension, unspecified; E27.9 Disorder of adrenal gland, unspecified; Z90.49 Acquired absence of other specified parts of digestive tract
CPT/HCPCS: 71270; Q9967

== ENCOUNTER → 2021-12-15 | Outpatient (POV) | payer MEDICARE ==
[~2021-12-15] VITALS: Ht 162.6 cm; Wt 85.5 kg
[~2021-12-15] MED LIST changes: -ISOVUE-370 76% 100ML VIAL ONE
[2021-12-15 13:40] VITALS: BP 144/74
== END ==
LOC: M IRPOV 13:32
PROVIDERS: ATTEND Radiology Diagnostic Radiology
DX: R91.1 Solitary pulmonary nodule (principal); I27.20 Pulmonary hypertension, unspecified; Z87.891 Personal history of nicotine dependence

== ENCOUNTER → 2021-12-24 | Outpatient (CLI) | payer MEDICARE ==
[~2021-12-24] MED LIST changes: +ISOVUE-370 76% 100ML VIAL As Ordered ONE
== END ==
LOC: M RAD 14:26
PROVIDERS: ATTEND Radiology Diagnostic Radiology
DX: Q27.30 Arteriovenous malformation, site unspecified (principal); I27.21 Secondary pulmonary arterial hypertension
CPT/HCPCS: 71275; Q9967

== ENCOUNTER → 2022-01-05 | Outpatient (CLI) | payer MEDICARE ==
[~2022-01-05] MED LIST changes: -ISOVUE-370 76% 100ML VIAL As Ordered ONE
== END ==
LOC: M RAD 14:07
PROVIDERS: ATTEND Orthopaedic Surgery
DX: M79.661 Pain in right lower leg (principal)

== ENCOUNTER → 2022-01-12 | Outpatient (POV) | payer MEDICARE ==
[~2022-01-12] VITALS: Ht 162.6 cm; Wt 82.7 kg
[2022-01-12 13:30] VITALS: BP 133/72
== END ==
LOC: M IRPOV 13:22
PROVIDERS: ATTEND Radiology Diagnostic Radiology
DX: R91.1 Solitary pulmonary nodule (principal)

== ENCOUNTER → 2022-03-17 | Outpatient (CLI) | payer MEDICARE ==
[~2022-03-17] MED LIST changes: +PROHANCE 279.3MG/ML 15ML VIAL ONE; +PROHANCE 279.3MG/ML 5ML VIAL ONE
== END ==
LOC: M PLAIMG 13:23
PROVIDERS: ATTEND Pain Medicine Interventional Pain Medicine
DX: M54.16 Radiculopathy, lumbar region (principal); M96.1 Postlaminectomy syndrome, not elsewhere classified
CPT/HCPCS: 72158; A9576

== ENCOUNTER → 2022-05-03 | Outpatient (CLI) | payer MEDICARE ==
[~2022-05-03] MED LIST changes: +PROHANCE 279.3MG/ML 15ML VIAL As Ordered ONE; -PROHANCE 279.3MG/ML 15ML VIAL ONE; +PROHANCE 279.3MG/ML 5ML VIAL As Ordered ONE; -PROHANCE 279.3MG/ML 5ML VIAL ONE
== END ==
LOC: M RAD 10:26
PROVIDERS: ATTEND Urology
DX: N28.9 Disorder of kidney and ureter, unspecified (principal)
CPT/HCPCS: 74183; A9576

== ENCOUNTER → 2022-10-19 | Outpatient (REF) | payer MEDICARE ==
[~2022-10-19] MED LIST changes: -PROHANCE 279.3MG/ML 15ML VIAL As Ordered ONE; -PROHANCE 279.3MG/ML 5ML VIAL As Ordered ONE
[2022-10-19 17:19] LABS: BLOOD UREA NITROGEN 17 MG/DL (9-23); CALCIUM LEVEL 9.3 MG/DL (8.3-10.6); CARBON DIOXIDE LEVEL 30 MMOL/L (20-31); CHLORIDE LEVEL 107 MMOL/L (98-107); CREATININE FOR GFR 0.67 MG/DL (0.55-1.30); GLOMERULAR FILTRATION RATE > 60.0 (>39); GLUCOSE, FASTING 74 MG/DL (74-106); POTASSIUM SERUM 4.1 MMOL/L (3.5-5.1); SODIUM LEVEL 143 MMOL/L (136-145)
== END ==
LOC: M LABSMT 12:01
PROVIDERS: ATTEND Urology
DX: N28.1 Cyst of kidney, acquired (principal)

== ENCOUNTER → 2022-10-27 | Outpatient (CLI) | payer MEDICARE ==
[~2022-10-27] MED LIST changes: +PROHANCE 279.3MG/ML 15ML VIAL As Ordered ONE
== END ==
LOC: M RAD 12:55
PROVIDERS: ATTEND Urology
DX: Q61.02 Congenital multiple renal cysts (principal); Z90.49 Acquired absence of other specified parts of digestive tract
CPT/HCPCS: 74183; A9576

== ENCOUNTER 2022-12-18 12:18 | Observation (INO) | payer MEDICARE ==
[~2022-12-18] VITALS: Ht 162.6 cm; Wt 80.5 kg
[~2022-12-18 12:18] MED LIST changes: -PROHANCE 279.3MG/ML 15ML VIAL As Ordered ONE
[2022-12-18] MEDS ORDERED: OMEP-173 (12:28)
[2022-12-18] MEDS ORDERED: DULO1CAP5 (12:28)
[2022-12-18] MEDS ORDERED: PREG75CA2 (12:28)
[2022-12-18] MEDS ORDERED: MORP-69 (12:28)
[2022-12-18] MEDS ORDERED: NAPR-1182 (12:28)
[2022-12-18] MEDS ORDERED: BUSP5TA (12:28)
[2022-12-18 13:47] LABS: BASO # 0.1 10^3/uL (0.0-0.2); BASO % 0.5 % (0.0-1.0); EOS # 0.2 10^3/uL (0.0-0.5); HEMATOCRIT 37.9 % (36.0-47.0); LYMPH # 2.2 10^3/uL (1.5-5.0); LYMPH % 22.7 % (24.0-44.0); MEAN CORPUSCULAR HEMOGLOBIN 29.6 pg (27.0-33.0); MEAN CORPUSCULAR HGB CONC 31.7 g/dl (32.0-36.5); MEAN CORPUSCULAR VOLUME 93.3 fl (80.0-96.0); MONO # 0.8 10^3/uL (0.0-0.8); MONO % 8.5 % (2.0-8.0); NEUTROPHILS # 6.5 10^3/uL (1.5-8.5); NEUTROPHILS % 65.9 % (36.0-66.0); PLATELET COUNT, AUTOMATED 220 10^3/uL (150-450); RED BLOOD COUNT 4.06 10^6/uL (4.00-5.40); WHITE BLOOD COUNT 9.8 10^3/uL (4.0-10.0)
[2022-12-18] MEDS ORDERED: ISOVUE-370 76% 100ML VIAL As Ordered ONE (13:54)
[2022-12-18 14:01] LABS: INR 0.92; PROTHROMBIN TIME 12.6 SECONDS (12.5-14.5)
[2022-12-18 14:04] LABS: D-DIMER QUANT 722.59 ng/ml (<500)
[2022-12-18 14:07] LABS: CK-MB VALUE MASS 1.4 NG/ML (<3.6)
[2022-12-18 14:09] LABS: ALBUMIN 3.5 G/DL (3.2-5.2); ALKALINE PHOSPHATASE 86 U/L (46-116); ALT/SGPT 17 U/L (7.0-40); AST/SGOT 17 U/L (<34); BILIRUBIN,DIRECT 0.1 MG/DL (<0.4); BILIRUBIN,TOTAL 0.2 MG/DL (0.3-1.2); BLOOD UREA NITROGEN 14 MG/DL (9-23); CALCIUM LEVEL 8.6 MG/DL (8.3-10.6); CARBON DIOXIDE LEVEL 28 MMOL/L (20-31); CHLORIDE LEVEL 109 MMOL/L (98-107); CPK CREATINE PHOSPHOKINASE 78 U/L (34-145); CREATININE FOR GFR 0.72 MG/DL (0.55-1.30); GLOMERULAR FILTRATION RATE > 60.0 (>39); GLUCOSE, FASTING 90 MG/DL (74-106); MB/CK RELATIVE INDEX 1.79 (< OR =4); POTASSIUM SERUM 4.2 MMOL/L (3.5-5.1); SODIUM LEVEL 142 MMOL/L (136-145); TOTAL PROTEIN 5.9 G/DL (5.7-8.2)
[2022-12-18 14:11] LABS: THYROID STIMULATING HORMONE 0.636 uIU/ML (0.55-4.78)
[2022-12-18 14:15] VITALS: BP 138/62
[2022-12-18 14:19] LABS: RSV AMPLIFICATION NEGATIVE (NEGATIVE)
[2022-12-18] MEDS ORDERED: ASPIRIN 81MG CHEW TABLET PO ONE (14:50)
[2022-12-18 15:01] LABS: CK-MB VALUE MASS 1.3 NG/ML (<3.6)
[2022-12-18 15:13] LABS: MB/CK RELATIVE INDEX 1.68 (< OR =4)
[2022-12-18] MEDS: SUCRALFATE 1 GM TAB PO SCH ×2 (17:30→20:41)
[2022-12-18 18:30] VITALS: BP 133/63
[2022-12-18 18:52] LABS: ERYTHROCYTE SEDIMENTATION RATE 14 mm/hr (0-30)
[2022-12-18 19:27] LABS: CK-MB VALUE MASS < 1.0 NG/ML (<3.6)
[2022-12-18 19:29] LABS: CPK CREATINE PHOSPHOKINASE 66 U/L (34-145); MB/CK RELATIVE INDEX 1.51 (< OR =4)
[2022-12-18 20:00] VITALS: BP 126/61
[2022-12-18] MEDS: PANTOPRAZOLE 40MG TAB (PROTONIX) PO SCH (20:41)
[2022-12-18] MEDS ORDERED: OMEPRAZOLE 20MG CAP PO SCH (21:00)
[2022-12-18] MEDS ORDERED: traZODone 50 MG TAB PO PRN (23:15)
[2022-12-18 23:42] VITALS: BP 123/64
[2022-12-19] MEDS: PREGABALIN 75 MG CAP(LYRICA) PO SCH ×3 (00:41→16:07)
[2022-12-19] MEDS: busPIRone 5 MG TAB PO SCH ×2 (00:41→08:24)
[2022-12-19] MEDS: BACLOFEN 10 MG TAB PO SCH ×2 (00:41→08:23)
[2022-12-19 00:58] LABS: CK-MB VALUE MASS < 1.0 NG/ML (<3.6)
[2022-12-19 01:00] LABS: CPK CREATINE PHOSPHOKINASE 50 U/L (34-145)
[2022-12-19 03:52] VITALS: BP 136/60
[2022-12-19 05:52] LABS: HEMATOCRIT 35.5 % (36.0-47.0); HEMOGLOBIN 11.3 g/dl (12.0-15.5); MEAN CORPUSCULAR HEMOGLOBIN 29.5 pg (27.0-33.0); MEAN CORPUSCULAR HGB CONC 31.8 g/dl (32.0-36.5); MEAN CORPUSCULAR VOLUME 92.7 fl (80.0-96.0); PLATELET COUNT, AUTOMATED 210 10^3/uL (150-450); RED BLOOD COUNT 3.83 10^6/uL (4.00-5.40)
[2022-12-19 06:21] LABS: CK-MB VALUE MASS < 1.0 NG/ML (<3.6)
[2022-12-19 06:22] LABS: CPK CREATINE PHOSPHOKINASE 42 U/L (34-145); MB/CK RELATIVE INDEX 2.38 (< OR =4)
[2022-12-19 06:26] LABS: BLOOD UREA NITROGEN 13 MG/DL (9-23); CALCIUM LEVEL 9.2 MG/DL (8.3-10.6); CARBON DIOXIDE LEVEL 30 MMOL/L (20-31); CHLORIDE LEVEL 110 MMOL/L (98-107); CHOLESTEROL LEVEL 113 MG/DL (<200); CHOLESTEROL RISK RATIO 3.17 (<5); CREATININE FOR GFR 0.78 MG/DL (0.55-1.30); GLOMERULAR FILTRATION RATE > 60.0 (>39); GLUCOSE, FASTING 84 MG/DL (74-106); HDL CHOLESTEROL 35.6 MG/DL (>40); LDL CHOLESTEROL 60.6 MG/DL (<100); NON-HDL-C 77.4 MG/DL; POTASSIUM SERUM 4.4 MMOL/L (3.5-5.1); SODIUM LEVEL 143 MMOL/L (136-145); TRIGLYCERIDES LEVEL 84 MG/DL (<150)
[2022-12-19 07:15] VITALS: BP 116/78
[2022-12-19] MEDS: SUCRALFATE 1 GM TAB PO SCH ×2 (08:24→13:11)
[2022-12-19] MEDS: PANTOPRAZOLE 40MG TAB (PROTONIX) PO SCH (08:24)
[2022-12-19] MEDS ORDERED: ASPIRIN 81MG CHEW TABLET PO SCH (09:00)
[2022-12-19] MEDS ORDERED: ENOXAPARIN 40MG/0.4ML SYRINGE (J1650 PER 10MG) SC SCH (09:00)
[2022-12-19] MEDS ORDERED: MORPHINE 15 MG SA TAB PO SCH (09:00)
[2022-12-19] MEDS ORDERED: DULoxetine 30MG CAPSULE (CYMBALTA) PO SCH (09:00)
[2022-12-19] MEDS ORDERED: SUCR1TA PO (09:03)
[2022-12-19] MEDS ORDERED: ASPI81CH8 PO (09:03)
[2022-12-19] MEDS ORDERED: PANT40TA29 PO (09:03)
[2022-12-19 12:20] LABS: CK-MB VALUE MASS < 1.0 NG/ML (<3.6)
[2022-12-19 12:22] LABS: CPK CREATINE PHOSPHOKINASE 42 U/L (34-145); MB/CK RELATIVE INDEX 2.38 (< OR =4)
[2022-12-19 12:44] VITALS: BP 133/63
[2022-12-19] MEDS ORDERED: ISOVUE-370 76% 100ML VIAL As Ordered ONE (14:16)
[2022-12-19 15:00] VITALS: BP 134/60
[2022-12-27 04:11] LABS: ANTI DOUBLE STRAND-DNA AB 2 IU/mL (0-9); ANTI DS-DNA AB Negative (Negative); ANTI JO-1 ANTIBODIES <20 Units (<20); ANTI SCLERODERMA ANTIBODIES <0.2 AI (0.0-0.9); ANTINUCLEAR ANTIBODIES DIRECT Positive (Negative); SJOGREN'S ANTI SS-A <0.2 AI (0.0-0.9); SJOGREN'S ANTI SS-B <0.2 AI (0.0-0.9); SMITH ANTIBODIES <0.2 AI (0.0-0.9)
== END 2022-12-19 16:20 | disposition home or self-care (01) ==
LOC: M ED 12:18 → M ED INP 15:22 → ENRESERV 16:58 → M PCU 18:28
PROVIDERS: ADMIT General Practice; ATTEND General Practice
DX: R53.1 Weakness (principal); R07.89 Other chest pain; R29.700 NIHSS score 0; I45.10 Unspecified right bundle-branch block; R94.31 Abnormal electrocardiogram [ECG] [EKG]; Z98.84 Bariatric surgery status; I27.20 Pulmonary hypertension, unspecified; G47.33 Obstructive sleep apnea (adult) (pediatric); N28.1 Cyst of kidney, acquired; R01.1 Cardiac murmur, unspecified; R60.0 Localized edema; I73.9 Peripheral vascular disease, unspecified; M54.9 Dorsalgia, unspecified; G89.29 Other chronic pain; Z98.1 Arthrodesis status; E66.9 Obesity, unspecified; Z68.30 Body mass index [BMI] 30.0-30.9, adult; R00.1 Bradycardia, unspecified; M79.7 Fibromyalgia; J30.2 Other seasonal allergic rhinitis; Z79.899 Other long term (current) drug therapy; Z79.82 Long term (current) use of aspirin; F17.200 Nicotine dependence, unspecified, uncomplicated
CPT/HCPCS: 36415; 70450; 70496; 70498; 70551; 71046; 71275; 72141; 80047; 80048; 80061; 80076; 82550; 82553; 83880; 84443; 84484; 85025; 85027; 85379; 85610; 85652; 86038; 86140; 86225; 86235; 87631; 93005; 93041; 93970; 94760; 96372; 97161; 99285; G0378; J1650; Q9967

== ENCOUNTER → 2023-03-03 | Outpatient (CLI) | payer MEDICARE ==
[~2023-03-03] MED LIST changes: +ASPI81CH8 PO; +BUSP5TA; +DULO1CAP5; +MORP-69; +NAPR-1182; +OMEP-173; +PANT40TA29 PO; +PREG75CA2; +SUCR1TA PO
== END ==
LOC: M WHC 13:26
PROVIDERS: ATTEND Family Medicine
DX: Z12.31 Encounter for screening mammogram for malignant neoplasm of breast (principal)

== ENCOUNTER → 2023-04-26 | Outpatient (REF) | payer MEDICARE ==
[~2023-04-26] MED LIST changes: -PREG75CA2; +PREG75CA3
[2023-04-26 17:23] LABS: BLOOD UREA NITROGEN 16 MG/DL (9-23); CALCIUM LEVEL 9.2 MG/DL (8.3-10.6); CARBON DIOXIDE LEVEL 32 MMOL/L (20-31); CHLORIDE LEVEL 107 MMOL/L (98-107); CREATININE FOR GFR 0.77 MG/DL (0.55-1.30); GLOMERULAR FILTRATION RATE > 60.0 (>39); GLUCOSE, FASTING 93 MG/DL (74-106); POTASSIUM SERUM 4.4 MMOL/L (3.5-5.1); SODIUM LEVEL 141 MMOL/L (136-145)
== END ==
LOC: M SFHCCLAY 11:25
PROVIDERS: ATTEND Family Medicine
DX: N28.1 Cyst of kidney, acquired (principal)

== ENCOUNTER → 2023-07-15 | Outpatient (CLI) | payer MEDICARE ==
[~2023-07-15] MED LIST changes: +E-Z-GAS II EFFERVESCENT PACKET (SODIUM BICARB./CITRIC ACID/SIMETHICONE) As Ordered ONE; +E-Z-HD 98% w/w 340GM SUSP BTL As Ordered ONE; +E-Z-PAQUE 96% w/w SUSP 176GM BTL As Ordered ONE
== END ==
LOC: M RAD 09:58
PROVIDERS: ATTEND Internal Medicine Gastroenterology
DX: K21.9 Gastro-esophageal reflux disease without esophagitis (principal); Z98.84 Bariatric surgery status

== ENCOUNTER 2023-11-20 14:47 | Inpatient (IN) | payer MEDICARE ==
[~2023-11-20] VITALS: Ht 160 cm; Wt 79.0 kg
[~2023-11-20 14:47] MED LIST changes: -BUSP5TA; +BUSP5TA PO; -E-Z-GAS II EFFERVESCENT PACKET (SODIUM BICARB./CITRIC ACID/SIMETHICONE) As Ordered ONE; -E-Z-HD 98% w/w 340GM SUSP BTL As Ordered ONE; -E-Z-PAQUE 96% w/w SUSP 176GM BTL As Ordered ONE; -MORP-69; +MORP-69 PO; -OMEP-173; +OMEP-173 PO; -PREG75CA3; +PREG75CA3 PO
[2023-11-20] MEDS: ALBUTEROL SULFATE 2.5MG/0.5ML INH NEB SOLN INH ONE (15:52)
[2023-11-20] MEDS: IPRATROPIUM 0.5MG/ALBUTEROL 2.5MG INH SOL UD 3ML (DUONEB) NEB ONE (15:52)
[2023-11-20] MEDS ORDERED: ISOVUE-370 76% 100ML VIAL As Ordered ONE (16:01)
[2023-11-20 16:08] LABS: BASO % 0.3 % (0.0-1.0); EOS # 0.2 10^3/uL (0.0-0.5); EOS % 1.5 % (0.0-3.0); HEMOGLOBIN 12.4 g/dl (12.0-15.5); LYMPH # 2.1 10^3/uL (1.5-5.0); LYMPH % 15.1 % (24.0-44.0); MEAN CORPUSCULAR HEMOGLOBIN 31.1 pg (27.0-33.0); MEAN CORPUSCULAR HGB CONC 33.5 g/dl (32.0-36.5); MEAN CORPUSCULAR VOLUME 92.7 fl (80.0-96.0); MONO # 1.4 10^3/uL (0.0-0.8); MONO % 10.1 % (2.0-8.0); NEUTROPHILS # 9.8 10^3/uL (1.5-8.5); PLATELET COUNT, AUTOMATED 229 10^3/uL (150-450); RED BLOOD COUNT 3.99 10^6/uL (4.00-5.40); WHITE BLOOD COUNT 13.6 10^3/uL (4.0-10.0)
[2023-11-20 16:12] LABS: ABG BASE EXCESS -0.4 (-2.0-2.0); ABG HCO3 23.9 MMOL/L (22.0-26.0); ABG O2 SATURATION 95.7 % (95.0-99.0); ABG PARTIAL PRESSURE CO2 37.8 mmHg (35.0-45.0); ABG STANDARD HCO3 24.1 MMOL/L. (22.0-26.0); ABG pH (ARTERIAL) 7.418 UNITS (7.350-7.450)
[2023-11-20] MEDS: LIDOCAINE 2% 5ML JELLY UROJET TOP ONE (16:21)
[2023-11-20] MEDS: methylPREDNISolone 125MG 2ML VIAL IV ONE (16:21)
[2023-11-20 16:30] LABS: ALKALINE PHOSPHATASE 97 U/L (46-116); ALT/SGPT 21 U/L (7.0-40); AST/SGOT 19 U/L (<34); BILIRUBIN,DIRECT 0.4 MG/DL (<0.4); BILIRUBIN,TOTAL 0.7 MG/DL (0.3-1.2); BLOOD UREA NITROGEN 16 MG/DL (9-23); CALCIUM LEVEL 8.7 MG/DL (8.3-10.6); CARBON DIOXIDE LEVEL 27 MMOL/L (20-31); CHLORIDE LEVEL 106 MMOL/L (98-107); CPK CREATINE PHOSPHOKINASE 30 U/L (34-145); CREATININE FOR GFR 0.67 MG/DL (0.55-1.30); GLOMERULAR FILTRATION RATE > 60.0 (>39); GLUCOSE, FASTING 104 MG/DL (74-106); POTASSIUM SERUM 4.2 MMOL/L (3.5-5.1); SODIUM LEVEL 138 MMOL/L (136-145); TOTAL PROTEIN 5.9 G/DL (5.7-8.2)
[2023-11-20 16:31] LABS: CK-MB VALUE MASS 1.8 NG/ML (<3.6)
[2023-11-20 16:34] LABS: THYROID STIMULATING HORMONE 0.474 uIU/ML (0.55-4.78)
[2023-11-20 16:43] LABS: PROCALCITONIN 0.07 ng/ml
[2023-11-20] MEDS: ACETAMINOPHEN TAB 650MG DOSE (2X325MG) PO ONE (17:11)
[2023-11-20] MEDS: cefTRIAXone SOD 1 GM in D5W MINI-BAG PLUS 50 ML IV ONE (17:12)
[2023-11-20 17:13] LABS: MB/CK RELATIVE INDEX 6.06 (< OR =4)
[2023-11-20] MEDS: AZITHROMYCIN INJ 500 MG, VIAL MATE ADAPTER 1 EACH in D5W 250 ML IV ONE (18:00)
[2023-11-20] MEDS ORDERED: MOM 30ML SUSPENSION UDC PO PRN (18:05)
[2023-11-20] MEDS ORDERED: MAALOX 30 ML SUSP *UDC PO PRN (18:05)
[2023-11-20] MEDS ORDERED: CALCTAB89 PO (18:11)
[2023-11-20] MEDS ORDERED: DULO1CAP4 PO (18:11)
[2023-11-20] MEDS ORDERED: BACL10TA2 PO (18:11)
[2023-11-20] MEDS ORDERED: MULTTAB61 PO (18:11)
[2023-11-20] MEDS ORDERED: SUCR1TA PO (18:11)
[2023-11-20] MEDS ORDERED: TRAZ-257 PO (18:11)
[2023-11-20] MEDS ORDERED: NAPR-885 PO (18:11)
[2023-11-20] MEDS ORDERED: ASPI81TA26 PO (18:11)
[2023-11-20] MEDS ORDERED: SUCRALFATE 1 GM TAB PO PRN (18:15)
[2023-11-20] MEDS ORDERED: HOME MED LIST COMPLETE! XX SCH (18:15)
[2023-11-20 19:05] LABS: PROCALCITONIN 0.05 ng/ml
[2023-11-20 21:00] VITALS: BP 122/68; TEMP 98.2; O2SAT 95
[2023-11-20] MEDS: ENOXAPARIN 80MG/0.8ML SYRINGE (J1650 PER 10MG) SC SCH (21:28)
[2023-11-20] MEDS: BACLOFEN 10 MG TAB PO SCH (21:28)
[2023-11-20] MEDS: DOCUSATE SODIUM 100MG CAPSULE PO SCH (21:29)
[2023-11-20] MEDS: MORPHINE 15 MG SA TAB PO SCH (21:29)
[2023-11-20] MEDS: traZODone 100 MG TAB PO SCH (21:29)
[2023-11-20] MEDS: busPIRone 5 MG TAB PO SCH (21:30)
[2023-11-21] VITALS (22 sets, daily range): BP systolic 102–141; BP diastolic 55–66; TEMP 97–98.8; O2SAT 86–97
[2023-11-21 06:04] LABS: HEMATOCRIT 35.1 % (36.0-47.0); HEMOGLOBIN 11.7 g/dl (12.0-15.5); MEAN CORPUSCULAR HGB CONC 33.3 g/dl (32.0-36.5); MEAN CORPUSCULAR VOLUME 92.9 fl (80.0-96.0); PLATELET COUNT, AUTOMATED 211 10^3/uL (150-450); RED BLOOD COUNT 3.78 10^6/uL (4.00-5.40); WHITE BLOOD COUNT 9.1 10^3/uL (4.0-10.0)
[2023-11-21 06:36] LABS: ALBUMIN 2.8 G/DL (3.2-5.2); ALKALINE PHOSPHATASE 93 U/L (46-116); ALT/SGPT 19 U/L (7.0-40); AST/SGOT 13 U/L (<34); BILIRUBIN,TOTAL 0.3 MG/DL (0.3-1.2); BLOOD UREA NITROGEN 16 MG/DL (9-23); CALCIUM LEVEL 9.2 MG/DL (8.3-10.6); CARBON DIOXIDE LEVEL 27 MMOL/L (20-31); CHLORIDE LEVEL 107 MMOL/L (98-107); CREATININE FOR GFR 0.56 MG/DL (0.55-1.30); GLOMERULAR FILTRATION RATE > 60.0 (>39); GLUCOSE, FASTING 151 MG/DL (74-106); POTASSIUM SERUM 4.7 MMOL/L (3.5-5.1); SODIUM LEVEL 139 MMOL/L (136-145); TOTAL PROTEIN 5.7 G/DL (5.7-8.2)
[2023-11-21] MEDS: ACETAMINOPHEN TAB 650MG DOSE (2X325MG) PO PRN (09:00)
[2023-11-21] MEDS: OMEPRAZOLE 20MG CAP PO SCH (09:01)
[2023-11-21] MEDS: DULoxetine 20MG CAP (CYMBALTA) PO SCH (09:01)
[2023-11-21] MEDS: ASPIRIN 81MG ENTERIC TABLET PO SCH (09:01)
[2023-11-21] MEDS: guaiFENesin ER TABLET 600 MG TAB PO SCH (11:34)
[2023-11-22] VITALS (20 sets, daily range): BP systolic 123–136; BP diastolic 58–70; TEMP 97–97.4; O2SAT 87–98
[2023-11-22 06:11] LABS: HEMATOCRIT 35.7 % (36.0-47.0); HEMOGLOBIN 11.6 g/dl (12.0-15.5); MEAN CORPUSCULAR HEMOGLOBIN 30.1 pg (27.0-33.0); MEAN CORPUSCULAR HGB CONC 32.5 g/dl (32.0-36.5); MEAN CORPUSCULAR VOLUME 92.5 fl (80.0-96.0); PLATELET COUNT, AUTOMATED 220 10^3/uL (150-450); RED BLOOD COUNT 3.86 10^6/uL (4.00-5.40); WHITE BLOOD COUNT 12.1 10^3/uL (4.0-10.0)
[2023-11-22 06:36] LABS: BLOOD UREA NITROGEN 13 MG/DL (9-23); CALCIUM LEVEL 9.2 MG/DL (8.3-10.6); CARBON DIOXIDE LEVEL 28 MMOL/L (20-31); CHLORIDE LEVEL 108 MMOL/L (98-107); CREATININE FOR GFR 0.68 MG/DL (0.55-1.30); GLOMERULAR FILTRATION RATE > 60.0 (>39); GLUCOSE, FASTING 93 MG/DL (74-106); POTASSIUM SERUM 4.1 MMOL/L (3.5-5.1); SODIUM LEVEL 143 MMOL/L (136-145)
[2023-11-22] MEDS: guaiFENesin/CODEINE SYRUP 5 ML UDC PO SCH (09:42)
[2023-11-22] MEDS: PREGABALIN 75 MG CAP(LYRICA) PO SCH (09:43)
[2023-11-22] MEDS: RIVAROXABAN 15MG TAB (XARELTO) PO SCH (09:43)
[2023-11-22] MEDS: LIDOCAINE 5% (LIDODERM) PATCH TD SCH ×2 (09:44)
[2023-11-22] MEDS: CYCLOBENZAPRINE 5MG TABLET PO SCH (20:38)
[2023-11-23] VITALS (14 sets, daily range): BP systolic 109–117; BP diastolic 58–61; TEMP 97.6–97.8; O2SAT 90–96
[2023-11-23 05:53] LABS: HEMATOCRIT 33.6 % (36.0-47.0); HEMOGLOBIN 11.2 g/dl (12.0-15.5); MEAN CORPUSCULAR HEMOGLOBIN 30.9 pg (27.0-33.0); MEAN CORPUSCULAR HGB CONC 33.3 g/dl (32.0-36.5); MEAN CORPUSCULAR VOLUME 92.6 fl (80.0-96.0); PLATELET COUNT, AUTOMATED 232 10^3/uL (150-450); RED BLOOD COUNT 3.63 10^6/uL (4.00-5.40); WHITE BLOOD COUNT 11.9 10^3/uL (4.0-10.0)
[2023-11-23 06:15] LABS: BLOOD UREA NITROGEN 15 MG/DL (9-23); CALCIUM LEVEL 8.8 MG/DL (8.3-10.6); CARBON DIOXIDE LEVEL 28 MMOL/L (20-31); CHLORIDE LEVEL 107 MMOL/L (98-107); CREATININE FOR GFR 0.66 MG/DL (0.55-1.30); GLOMERULAR FILTRATION RATE > 60.0 (>39); GLUCOSE, FASTING 98 MG/DL (74-106); POTASSIUM SERUM 3.8 MMOL/L (3.5-5.1); SODIUM LEVEL 141 MMOL/L (136-145)
[2023-11-23] MEDS ORDERED: XARE15TA PO (11:11)
[2023-11-23] MEDS ORDERED: XARE20TA PO (11:11)
[2023-11-23] MEDS ORDERED: CYCL5TAB PO (11:12)
[2023-11-23] MEDS ORDERED: LIDO5TD TD (11:12)
== END 2023-11-23 13:32 | disposition home or self-care (01) | DRG 176 ==
LOC: M ED 14:47 → M ED INP 14:48 → ENRESERV 20:39 → M PCU 20:55 → OBSVTOIN 11-21 12:18
PROVIDERS: ADMIT Internal Medicine; ATTEND Internal Medicine
PROC: B246ZZZ Ultrasonography of Right and Left Heart (ICD-10-PCS; principal; 2023-11-21)
DX: I26.99 Other pulmonary embolism without acute cor pulmonale (principal); C34.90 Malignant neoplasm of unspecified part of unspecified bronchus or lung; I36.1 Nonrheumatic tricuspid (valve) insufficiency; F17.210 Nicotine dependence, cigarettes, uncomplicated; G47.33 Obstructive sleep apnea (adult) (pediatric); R91.8 Other nonspecific abnormal finding of lung field; I27.20 Pulmonary hypertension, unspecified; G89.4 Chronic pain syndrome; Z79.890 Hormone replacement therapy; Z79.899 Other long term (current) drug therapy; Z11.52 Encounter for screening for COVID-19; Z98.84 Bariatric surgery status; Z90.79 Acquired absence of other genital organ(s); Z96.659 Presence of unspecified artificial knee joint; Z80.3 Family history of malignant neoplasm of breast; M79.7 Fibromyalgia

== ENCOUNTER 2023-12-06 08:36 | Inpatient (IN) | payer MEDICARE ==
[~2023-12-06] VITALS: Ht 160 cm; Wt 83.1 kg
[2023-12-06] VITALS (15 sets, daily range): BP systolic 87–141; BP diastolic 52–83; TEMP 98–102; O2SAT 88–100
[~2023-12-06 08:36] MED LIST changes: +ASPI81TA26 PO; +BACL10TA2 PO; +CALCTAB89 PO; +CYCL5TAB PO; +DULO1CAP4 PO; +LIDO5TD TD; +MULTTAB61 PO; +NAPR-885 PO; +TRAZ-257 PO; +XARE15TA PO; +XARE20TA PO
[2023-12-06] MEDS ORDERED: CYCL5TAB PO (09:12)
[2023-12-06] MEDS ORDERED: LEVO1TAB39 PO (09:12)
[2023-12-06 09:58] LABS: BASO # 0.1 10^3/uL (0.0-0.2); BASO % 0.5 % (0.0-1.0); EOS # 0.4 10^3/uL (0.0-0.5); EOS % 2.9 % (0.0-3.0); HEMATOCRIT 32.8 % (36.0-47.0); HEMOGLOBIN 10.6 g/dl (12.0-15.5); LYMPH # 1.5 10^3/uL (1.5-5.0); LYMPH % 11.6 % (24.0-44.0); MEAN CORPUSCULAR HGB CONC 32.3 g/dl (32.0-36.5); MEAN CORPUSCULAR VOLUME 92.9 fl (80.0-96.0); MONO # 1.1 10^3/uL (0.0-0.8); MONO % 8.8 % (2.0-8.0); NEUTROPHILS # 9.6 10^3/uL (1.5-8.5); NEUTROPHILS % 75.3 % (36.0-66.0); PLATELET COUNT, AUTOMATED 549 10^3/uL (150-450); RED BLOOD COUNT 3.53 10^6/uL (4.00-5.40); WHITE BLOOD COUNT 12.8 10^3/uL (4.0-10.0)
[2023-12-06 10:05] LABS: BLOOD UREA NITROGEN 14 MG/DL (9-23); CALCIUM LEVEL 9.1 MG/DL (8.3-10.6); CARBON DIOXIDE LEVEL 25 MMOL/L (20-31); CHLORIDE LEVEL 106 MMOL/L (98-107); CREATININE FOR GFR 0.61 MG/DL (0.55-1.30); GLOMERULAR FILTRATION RATE > 60.0 (>39); GLUCOSE, FASTING 120 MG/DL (74-106); SODIUM LEVEL 139 MMOL/L (136-145)
[2023-12-06] MEDS ORDERED: MED REC IN PROGRESS XX SCH (10:30)
[2023-12-06] MEDS: MORPHINE 4 MG/ML 1ML VIAL IV ONE (10:33)
[2023-12-06] MEDS ORDERED: ISOVUE-370 76% 100ML VIAL As Ordered ONE (10:37)
[2023-12-06 11:34] LABS: INR 3.09; PARTIAL THROMBOPLASTIN TIME 58.7 SECONDS (24.8-34.2); PROTHROMBIN TIME 30.7 SECONDS (12.5-14.5)
[2023-12-06] MEDS ORDERED: MOM 30ML SUSPENSION UDC PO PRN (11:35)
[2023-12-06] MEDS: LIDOCAINE 5% (LIDODERM) PATCH TD SCH (11:52)
[2023-12-06 12:21] LABS: PROCALCITONIN <0.04 ng/ml
[2023-12-06 13:02] LABS: CK-MB VALUE MASS < 1.0 NG/ML (<3.6); CPK CREATINE PHOSPHOKINASE 25 U/L (34-145)
[2023-12-06 13:03] LABS: ALBUMIN 2.4 G/DL (3.2-5.2); ALKALINE PHOSPHATASE 118 U/L (46-116); ALT/SGPT 10 U/L (7.0-40); AST/SGOT < 8 U/L (<34); BILIRUBIN,DIRECT 0.2 MG/DL (<0.4); BILIRUBIN,TOTAL 0.3 MG/DL (0.3-1.2); TOTAL PROTEIN 5.8 G/DL (5.7-8.2)
[2023-12-06] MEDS ORDERED: XARE15TA PO (13:04)
[2023-12-06] MEDS ORDERED: HOME MED LIST COMPLETE! XX SCH (13:05)
[2023-12-06] MEDS: MIDAZOLAM INJ 2MG/2ML VIAL IV STA (13:50)
[2023-12-06] MEDS: LIDOCAINE 1% MDV 20ML VIAL SC STA (13:55)
[2023-12-06] MEDS: flumazeniL 0.5MG/5ML VIAL IV STA (14:17)
[2023-12-06] MEDS: MORPHINE 2 MG/ML 1ML VIAL IV PRN (14:24)
[2023-12-06] MEDS ORDERED: PERCOCET 5MG/325MG TAB PO PRN ×2 (14:40)
[2023-12-06] MEDS ORDERED: ONDANSETRON 4MG 2ML VIAL IV PRN (14:40)
[2023-12-06] MEDS ORDERED: BISACODYL 10MG SUPP PR PRN (14:40)
[2023-12-06] MEDS: guaiFENesin ER TABLET 600 MG TAB PO SCH (14:42)
[2023-12-06] MEDS: KETOROLAC 30 MG/ML 1ML VIAL IV SCH (14:57)
[2023-12-06 15:10] LABS: HEMATOCRIT 31.2 % (36.0-47.0); MEAN CORPUSCULAR HEMOGLOBIN 30.3 pg (27.0-33.0); MEAN CORPUSCULAR HGB CONC 32.1 g/dl (32.0-36.5); MEAN CORPUSCULAR VOLUME 94.5 fl (80.0-96.0); PLATELET COUNT, AUTOMATED 568 10^3/uL (150-450); WHITE BLOOD COUNT 11.5 10^3/uL (4.0-10.0)
[2023-12-06 15:19] LABS: PH BODY FLUID 7.142 UNITS (NOT ESTABLISHED); SOURCE, BODY FLUID pH PLEURAL
[2023-12-06] MEDS: NS 1,000 ML IV SCH (15:25)
[2023-12-06 15:26] LABS: LDH LACTATE DEHYDROGENASE 198 U/L (120-246)
[2023-12-06 15:30] LABS: APPEARANCE, BODY FLUID TURBID (CLEAR); PLEURAL FL COLOR RED (COLORLESS); SOURCE, BODY FLUID PLEURAL
[2023-12-06 15:48] LABS: SOURCE, BODY FLUID ALBUMIN PLEURAL
[2023-12-06 15:53] LABS: SOURCE, BODY FLUID GLUCOSE PLEURAL; SOURCE, BODY FLUID TRIG PLEURAL; TRIGLYCERIDE, BODY FLUID 43 MG/DL (NOT ESTABLISHED)
[2023-12-06 15:55] LABS: AMYLASE, BODY FLUID 40 U/L (NOT ESTABLISHED); CHOLESTEROL, BODY FLUID 78 MG/DL (NOT ESTABLISHED); SOURCE, BODY FLUID AMYLASE PLEURAL; SOURCE, BODY FLUID CHOL PLEURAL
[2023-12-06 15:56] LABS: SOURCE, BODY FLUID TOT PROTEIN PLEURAL; TOTAL PROTEIN, BODY FLUID 3.9 G/DL (NOT ESTABLISHED)
[2023-12-06 16:04] LABS: LDH, BODY FLUID > 750 U/L (NOT ESTABLISHED); SOURCE, BODY FLUID LDH PLEURAL
[2023-12-06] MEDS: CYCLOBENZAPRINE 5MG TABLET PO SCH (16:44)
[2023-12-06 20:35] LABS: HEMATOCRIT 30.4 % (36.0-47.0); HEMOGLOBIN 9.8 g/dl (12.0-15.5); MEAN CORPUSCULAR HEMOGLOBIN 29.9 pg (27.0-33.0); MEAN CORPUSCULAR HGB CONC 32.2 g/dl (32.0-36.5); MEAN CORPUSCULAR VOLUME 92.7 fl (80.0-96.0); PLATELET COUNT, AUTOMATED 526 10^3/uL (150-450); RED BLOOD COUNT 3.28 10^6/uL (4.00-5.40); WHITE BLOOD COUNT 15.4 10^3/uL (4.0-10.0)
[2023-12-06] MEDS: busPIRone 5 MG TAB PO SCH (20:44)
[2023-12-06] MEDS: DOCUSATE SODIUM 100MG CAPSULE PO SCH (20:44)
[2023-12-06] MEDS: traZODone 100 MG TAB PO SCH (20:44)
[2023-12-06] MEDS: PREGABALIN 75 MG CAP(LYRICA) PO SCH (20:45)
[2023-12-06] MEDS: ACETAMINOPHEN TAB 650MG DOSE (2X325MG) PO PRN (22:41)
[2023-12-07] VITALS (10 sets, daily range): BP systolic 99–125; BP diastolic 55–74; TEMP 97.8–99.9; O2SAT 93–97
[2023-12-07 02:40] LABS: HEMATOCRIT 26.8 % (36.0-47.0); HEMOGLOBIN 8.7 g/dl (12.0-15.5); MEAN CORPUSCULAR HEMOGLOBIN 30.5 pg (27.0-33.0); MEAN CORPUSCULAR HGB CONC 32.5 g/dl (32.0-36.5); PLATELET COUNT, AUTOMATED 453 10^3/uL (150-450); RED BLOOD COUNT 2.85 10^6/uL (4.00-5.40); WHITE BLOOD COUNT 11.1 10^3/uL (4.0-10.0)
[2023-12-07 06:16] LABS: BASO % 0.4 % (0.0-1.0); EOS # 0.4 10^3/uL (0.0-0.5); EOS % 4.3 % (0.0-3.0); HEMOGLOBIN 8.7 g/dl (12.0-15.5); LYMPH # 1.8 10^3/uL (1.5-5.0); LYMPH % 18.3 % (24.0-44.0); MEAN CORPUSCULAR HEMOGLOBIN 30.2 pg (27.0-33.0); MEAN CORPUSCULAR HGB CONC 32.2 g/dl (32.0-36.5); MEAN CORPUSCULAR VOLUME 93.8 fl (80.0-96.0); MONO # 1.1 10^3/uL (0.0-0.8); NEUTROPHILS # 6.5 10^3/uL (1.5-8.5); PLATELET COUNT, AUTOMATED 448 10^3/uL (150-450); RED BLOOD COUNT 2.88 10^6/uL (4.00-5.40); WHITE BLOOD COUNT 9.9 10^3/uL (4.0-10.0)
[2023-12-07 06:31] LABS: INR 1.9; PARTIAL THROMBOPLASTIN TIME 58.1 SECONDS (24.8-34.2); PROTHROMBIN TIME 21.1 SECONDS (12.5-14.5)
[2023-12-07 06:50] LABS: ALBUMIN 1.7 G/DL (3.2-5.2); ALKALINE PHOSPHATASE 88 U/L (46-116); ALT/SGPT < 9 U/L (7.0-40); AST/SGOT 10 U/L (<34); BILIRUBIN,TOTAL 0.4 MG/DL (0.3-1.2); BLOOD UREA NITROGEN 13 MG/DL (9-23); CALCIUM LEVEL 8.2 MG/DL (8.3-10.6); CARBON DIOXIDE LEVEL 25 MMOL/L (20-31); CHLORIDE LEVEL 107 MMOL/L (98-107); CREATININE FOR GFR 0.69 MG/DL (0.55-1.30); GLOMERULAR FILTRATION RATE > 60.0 (>39); GLUCOSE, FASTING 97 MG/DL (74-106); POTASSIUM SERUM 4.1 MMOL/L (3.5-5.1); SODIUM LEVEL 137 MMOL/L (136-145); TOTAL PROTEIN 4.3 G/DL (5.7-8.2)
[2023-12-07] MEDS ORDERED: OMEPRAZOLE 20MG CAP PO SCH (09:00)
[2023-12-07] MEDS: DOXYCYCLINE HYCLATE 100MG TABLET PO SCH (09:01)
[2023-12-07] MEDS: SUCRALFATE 1 GM TAB PO SCH (09:01)
[2023-12-07] MEDS: PIPERACILLIN/TAZOBACTAM SOD 4.5 GM in D5W MINI-BAG PLUS 50 ML IV SCH (09:01)
[2023-12-07] MEDS: MORPHINE 15 MG SA TAB PO SCH (09:04)
[2023-12-07] MEDS: PANTOPRAZOLE 40MG TAB (PROTONIX) PO SCH (09:05)
[2023-12-07] MEDS: BENZONATATE 100MG CAPSULE PO SCH (09:05)
[2023-12-07] MEDS: DULoxetine 20MG CAP (CYMBALTA) PO SCH (09:05)
[2023-12-07 14:20] LABS: HEMATOCRIT 27.3 % (36.0-47.0); HEMOGLOBIN 8.9 g/dl (12.0-15.5); MEAN CORPUSCULAR HEMOGLOBIN 30.3 pg (27.0-33.0); MEAN CORPUSCULAR HGB CONC 32.6 g/dl (32.0-36.5); MEAN CORPUSCULAR VOLUME 92.9 fl (80.0-96.0); PLATELET COUNT, AUTOMATED 442 10^3/uL (150-450); RED BLOOD COUNT 2.94 10^6/uL (4.00-5.40); WHITE BLOOD COUNT 10.5 10^3/uL (4.0-10.0)
[2023-12-07 20:24] LABS: HEMATOCRIT 27.4 % (36.0-47.0); HEMOGLOBIN 8.9 g/dl (12.0-15.5); MEAN CORPUSCULAR HEMOGLOBIN 30.5 pg (27.0-33.0); MEAN CORPUSCULAR HGB CONC 32.5 g/dl (32.0-36.5); MEAN CORPUSCULAR VOLUME 93.8 fl (80.0-96.0); PLATELET COUNT, AUTOMATED 469 10^3/uL (150-450); RED BLOOD COUNT 2.92 10^6/uL (4.00-5.40); WHITE BLOOD COUNT 11.8 10^3/uL (4.0-10.0)
[2023-12-07] MEDS: LEVALBUTEROL 1.25MG 0.5ML CONCENTRATE NEB INH SCH (23:07)
[2023-12-08] VITALS (32 sets, daily range): BP systolic 100–151; BP diastolic 54–71; TEMP 97–99.2; O2SAT 92–100
[2023-12-08 05:28] LABS: BASO # 0.1 10^3/uL (0.0-0.2); BASO % 0.5 % (0.0-1.0); EOS # 0.4 10^3/uL (0.0-0.5); EOS % 3.9 % (0.0-3.0); HEMATOCRIT 23.8 % (36.0-47.0); HEMOGLOBIN 7.8 g/dl (12.0-15.5); LYMPH # 1.6 10^3/uL (1.5-5.0); LYMPH % 15.6 % (24.0-44.0); MEAN CORPUSCULAR HGB CONC 32.8 g/dl (32.0-36.5); MEAN CORPUSCULAR VOLUME 91.5 fl (80.0-96.0); MONO # 1.1 10^3/uL (0.0-0.8); MONO % 10.6 % (2.0-8.0); NEUTROPHILS # 7.1 10^3/uL (1.5-8.5); NEUTROPHILS % 68.5 % (36.0-66.0); PLATELET COUNT, AUTOMATED 419 10^3/uL (150-450); WHITE BLOOD COUNT 10.4 10^3/uL (4.0-10.0)
[2023-12-08 05:41] LABS: INR 1.63; PARTIAL THROMBOPLASTIN TIME 49.8 SECONDS (24.8-34.2); PROTHROMBIN TIME 18.8 SECONDS (12.5-14.5)
[2023-12-08 05:49] LABS: ALBUMIN 1.5 G/DL (3.2-5.2); ALKALINE PHOSPHATASE 81 U/L (46-116); ALT/SGPT < 9 U/L (7.0-40); AST/SGOT < 8 U/L (<34); BILIRUBIN,TOTAL 0.3 MG/DL (0.3-1.2); BLOOD UREA NITROGEN 15 MG/DL (9-23); CALCIUM LEVEL 8.2 MG/DL (8.3-10.6); CARBON DIOXIDE LEVEL 26 MMOL/L (20-31); CHLORIDE LEVEL 111 MMOL/L (98-107); CREATININE FOR GFR 0.76 MG/DL (0.55-1.30); GLOMERULAR FILTRATION RATE > 60.0 (>39); GLUCOSE, FASTING 92 MG/DL (74-106); POTASSIUM SERUM 4.1 MMOL/L (3.5-5.1); SODIUM LEVEL 142 MMOL/L (136-145); TOTAL PROTEIN 4.2 G/DL (5.7-8.2)
[2023-12-08] MEDS: MORPHINE 2 MG/ML 1ML VIAL IV PRN (06:20)
[2023-12-08 08:32] LABS: HEMATOCRIT 27.7 % (36.0-47.0); HEMOGLOBIN 8.8 g/dl (12.0-15.5); MEAN CORPUSCULAR HEMOGLOBIN 29.9 pg (27.0-33.0); MEAN CORPUSCULAR HGB CONC 31.8 g/dl (32.0-36.5); MEAN CORPUSCULAR VOLUME 94.2 fl (80.0-96.0); PLATELET COUNT, AUTOMATED 499 10^3/uL (150-450); RED BLOOD COUNT 2.94 10^6/uL (4.00-5.40)
[2023-12-08] MEDS: FUROSEMIDE 40MG/4ML VIAL IV ONE (13:05)
[2023-12-08 14:18] LABS: HEMATOCRIT 32.7 % (36.0-47.0); HEMOGLOBIN 10.6 g/dl (12.0-15.5); MEAN CORPUSCULAR HEMOGLOBIN 30.1 pg (27.0-33.0); MEAN CORPUSCULAR HGB CONC 32.4 g/dl (32.0-36.5); MEAN CORPUSCULAR VOLUME 92.9 fl (80.0-96.0); PLATELET COUNT, AUTOMATED 520 10^3/uL (150-450); RED BLOOD COUNT 3.52 10^6/uL (4.00-5.40); WHITE BLOOD COUNT 14.3 10^3/uL (4.0-10.0)
[2023-12-08 20:49] LABS: HEMATOCRIT 27.3 % (36.0-47.0); HEMOGLOBIN 8.8 g/dl (12.0-15.5); MEAN CORPUSCULAR HEMOGLOBIN 29.2 pg (27.0-33.0); MEAN CORPUSCULAR HGB CONC 32.2 g/dl (32.0-36.5); MEAN CORPUSCULAR VOLUME 90.7 fl (80.0-96.0); PLATELET COUNT, AUTOMATED 443 10^3/uL (150-450); RED BLOOD COUNT 3.01 10^6/uL (4.00-5.40); WHITE BLOOD COUNT 12.5 10^3/uL (4.0-10.0)
[2023-12-09] VITALS (13 sets, daily range): BP systolic 90–119; BP diastolic 52–68; TEMP 97.2–98.8; O2SAT 90–96
[2023-12-09 06:31] LABS: BASO % 0.4 % (0.0-1.0); EOS # 0.4 10^3/uL (0.0-0.5); EOS % 4.2 % (0.0-3.0); HEMATOCRIT 25.6 % (36.0-47.0); HEMOGLOBIN 8.3 g/dl (12.0-15.5); LYMPH # 1.7 10^3/uL (1.5-5.0); LYMPH % 17.9 % (24.0-44.0); MEAN CORPUSCULAR HEMOGLOBIN 29.5 pg (27.0-33.0); MEAN CORPUSCULAR HGB CONC 32.4 g/dl (32.0-36.5); MEAN CORPUSCULAR VOLUME 91.1 fl (80.0-96.0); MONO # 1.1 10^3/uL (0.0-0.8); MONO % 11.5 % (2.0-8.0); NEUTROPHILS # 6.2 10^3/uL (1.5-8.5); NEUTROPHILS % 65.3 % (36.0-66.0); PLATELET COUNT, AUTOMATED 384 10^3/uL (150-450); RED BLOOD COUNT 2.81 10^6/uL (4.00-5.40); WHITE BLOOD COUNT 9.5 10^3/uL (4.0-10.0)
[2023-12-09 06:47] LABS: INR 1.45; PROTHROMBIN TIME 17.1 SECONDS (12.5-14.5)
[2023-12-09 07:01] LABS: ALBUMIN 1.5 G/DL (3.2-5.2); ALKALINE PHOSPHATASE 77 U/L (46-116); ALT/SGPT 11 U/L (7.0-40); AST/SGOT 16 U/L (<34); BILIRUBIN,TOTAL 0.5 MG/DL (0.3-1.2); BLOOD UREA NITROGEN 13 MG/DL (9-23); CALCIUM LEVEL 8.2 MG/DL (8.3-10.6); CARBON DIOXIDE LEVEL 30 MMOL/L (20-31); CHLORIDE LEVEL 106 MMOL/L (98-107); CREATININE FOR GFR 0.75 MG/DL (0.55-1.30); GLOMERULAR FILTRATION RATE > 60.0 (>39); GLUCOSE, FASTING 88 MG/DL (74-106); POTASSIUM SERUM 3.8 MMOL/L (3.5-5.1); SODIUM LEVEL 141 MMOL/L (136-145); TOTAL PROTEIN 4.3 G/DL (5.7-8.2)
[2023-12-09 12:51] LABS: PROCALCITONIN 0.06 ng/ml
[2023-12-09] MEDS: FUROSEMIDE 20MG/2ML VIAL IV ONE (19:03)
[2023-12-09 21:20] LABS: HEMATOCRIT 32.5 % (36.0-47.0); MEAN CORPUSCULAR HEMOGLOBIN 29.9 pg (27.0-33.0); MEAN CORPUSCULAR HGB CONC 32.9 g/dl (32.0-36.5); MEAN CORPUSCULAR VOLUME 90.8 fl (80.0-96.0); PLATELET COUNT, AUTOMATED 461 10^3/uL (150-450); RED BLOOD COUNT 3.58 10^6/uL (4.00-5.40); WHITE BLOOD COUNT 12.6 10^3/uL (4.0-10.0)
[2023-12-09 21:29] LABS: HEMOGLOBIN 10.7 g/dl (12.0-15.5)
[2023-12-10 03:48] VITALS: BP 108/58; TEMP 97.4; O2SAT 96
[2023-12-10 06:50] LABS: BASO # 0.1 10^3/uL (0.0-0.2); BASO % 0.6 % (0.0-1.0); EOS # 0.7 10^3/uL (0.0-0.5); EOS % 6.5 % (0.0-3.0); HEMATOCRIT 29.1 % (36.0-47.0); HEMOGLOBIN 9.3 g/dl (12.0-15.5); LYMPH # 1.8 10^3/uL (1.5-5.0); LYMPH % 17.2 % (24.0-44.0); MEAN CORPUSCULAR HEMOGLOBIN 29.2 pg (27.0-33.0); MEAN CORPUSCULAR VOLUME 91.2 fl (80.0-96.0); MONO # 1.3 10^3/uL (0.0-0.8); MONO % 12.5 % (2.0-8.0); NEUTROPHILS # 6.3 10^3/uL (1.5-8.5); NEUTROPHILS % 62.3 % (36.0-66.0); PLATELET COUNT, AUTOMATED 400 10^3/uL (150-450); RED BLOOD COUNT 3.19 10^6/uL (4.00-5.40); WHITE BLOOD COUNT 10.2 10^3/uL (4.0-10.0)
[2023-12-10 07:07] LABS: INR 1.3; PARTIAL THROMBOPLASTIN TIME 43.5 SECONDS (24.8-34.2); PROTHROMBIN TIME 15.8 SECONDS (12.5-14.5)
[2023-12-10 07:22] LABS: ALBUMIN 1.5 G/DL (3.2-5.2); ALKALINE PHOSPHATASE 83 U/L (46-116); ALT/SGPT 19 U/L (7.0-40); AST/SGOT 26 U/L (<34); BILIRUBIN,TOTAL 0.5 MG/DL (0.3-1.2); BLOOD UREA NITROGEN 15 MG/DL (9-23); CALCIUM LEVEL 8.5 MG/DL (8.3-10.6); CARBON DIOXIDE LEVEL 30 MMOL/L (20-31); CHLORIDE LEVEL 109 MMOL/L (98-107); CREATININE FOR GFR 0.82 MG/DL (0.55-1.30); GLOMERULAR FILTRATION RATE > 60.0 (>39); GLUCOSE, FASTING 87 MG/DL (74-106); POTASSIUM SERUM 3.7 MMOL/L (3.5-5.1); SODIUM LEVEL 144 MMOL/L (136-145); TOTAL PROTEIN 4.5 G/DL (5.7-8.2)
[2023-12-10 07:34] VITALS: BP 106/71; TEMP 97.9; O2SAT 96
[2023-12-10] MEDS: FUROSEMIDE 40MG/4ML VIAL IV ONE (10:52)
[2023-12-10] MEDS: POTASSIUM CHLORIDE 10MEQ SR TABLET PO ONE (10:53)
[2023-12-10 11:51] VITALS: BP 121/63; TEMP 98.2; O2SAT 97
[2023-12-10] MEDS: LEVALBUTEROL 1.25MG 0.5ML CONCENTRATE NEB NEB PRN (13:11)
[2023-12-10 15:24] VITALS: BP 116/62; TEMP 97.8; O2SAT 95
[2023-12-10 19:47] VITALS: BP 113/61; TEMP 98.9; O2SAT 95
[2023-12-11] VITALS (7 sets, daily range): BP systolic 92–123; BP diastolic 55–66; TEMP 97–97.8; O2SAT 92–94
[2023-12-11 05:20] LABS: BASO # 0.1 10^3/uL (0.0-0.2); BASO % 0.5 % (0.0-1.0); EOS # 0.6 10^3/uL (0.0-0.5); EOS % 5.6 % (0.0-3.0); HEMATOCRIT 29.2 % (36.0-47.0); HEMOGLOBIN 9.3 g/dl (12.0-15.5); LYMPH # 1.8 10^3/uL (1.5-5.0); LYMPH % 16.3 % (24.0-44.0); MEAN CORPUSCULAR HGB CONC 31.8 g/dl (32.0-36.5); MONO # 1.3 10^3/uL (0.0-0.8); MONO % 12.2 % (2.0-8.0); NEUTROPHILS % 64.7 % (36.0-66.0); PLATELET COUNT, AUTOMATED 406 10^3/uL (150-450); RED BLOOD COUNT 3.21 10^6/uL (4.00-5.40); WHITE BLOOD COUNT 10.7 10^3/uL (4.0-10.0)
[2023-12-11 05:32] LABS: INR 1.3; PROTHROMBIN TIME 15.8 SECONDS (12.5-14.5)
[2023-12-11 05:45] LABS: ALBUMIN 1.5 G/DL (3.2-5.2); ALKALINE PHOSPHATASE 100 U/L (46-116); ALT/SGPT 27 U/L (7.0-40); AST/SGOT 40 U/L (<34); BILIRUBIN,TOTAL 0.4 MG/DL (0.3-1.2); BLOOD UREA NITROGEN 15 MG/DL (9-23); CALCIUM LEVEL 8.3 MG/DL (8.3-10.6); CARBON DIOXIDE LEVEL 29 MMOL/L (20-31); CHLORIDE LEVEL 107 MMOL/L (98-107); CREATININE FOR GFR 0.74 MG/DL (0.55-1.30); GLOMERULAR FILTRATION RATE > 60.0 (>39); GLUCOSE, FASTING 94 MG/DL (74-106); POTASSIUM SERUM 3.5 MMOL/L (3.5-5.1); SODIUM LEVEL 141 MMOL/L (136-145); TOTAL PROTEIN 4.6 G/DL (5.7-8.2)
[2023-12-11] MEDS: FUROSEMIDE 20MG/2ML VIAL IV SCH (08:37)
[2023-12-11] MEDS: ALTEPLASE 2MG/2ML VIAL XX ONE (10:06)
[2023-12-11] MEDS: PERCOCET 5MG/325MG TAB PO PRN ×2 (14:38→18:55)
[2023-12-12 03:36] VITALS: BP 112/59; TEMP 97.3; O2SAT 90
[2023-12-12 06:20] LABS: BASO # 0.1 10^3/uL (0.0-0.2); BASO % 0.6 % (0.0-1.0); EOS # 0.6 10^3/uL (0.0-0.5); EOS % 5.1 % (0.0-3.0); HEMATOCRIT 29.3 % (36.0-47.0); HEMOGLOBIN 9.4 g/dl (12.0-15.5); LYMPH # 1.7 10^3/uL (1.5-5.0); LYMPH % 14.2 % (24.0-44.0); MEAN CORPUSCULAR HEMOGLOBIN 29.7 pg (27.0-33.0); MEAN CORPUSCULAR HGB CONC 32.1 g/dl (32.0-36.5); MEAN CORPUSCULAR VOLUME 92.4 fl (80.0-96.0); MONO # 1.6 10^3/uL (0.0-0.8); MONO % 13.2 % (2.0-8.0); NEUTROPHILS # 7.9 10^3/uL (1.5-8.5); NEUTROPHILS % 66.1 % (36.0-66.0); PLATELET COUNT, AUTOMATED 407 10^3/uL (150-450); RED BLOOD COUNT 3.17 10^6/uL (4.00-5.40); WHITE BLOOD COUNT 11.9 10^3/uL (4.0-10.0)
[2023-12-12 06:42] LABS: ALBUMIN 1.5 G/DL (3.2-5.2); ALKALINE PHOSPHATASE 108 U/L (46-116); ALT/SGPT 27 U/L (7.0-40); AST/SGOT 30 U/L (<34); BILIRUBIN,TOTAL 0.5 MG/DL (0.3-1.2); BLOOD UREA NITROGEN 16 MG/DL (9-23); CALCIUM LEVEL 8.5 MG/DL (8.3-10.6); CARBON DIOXIDE LEVEL 31 MMOL/L (20-31); CHLORIDE LEVEL 106 MMOL/L (98-107); CREATININE FOR GFR 0.75 MG/DL (0.55-1.30); GLOMERULAR FILTRATION RATE > 60.0 (>39); GLUCOSE, FASTING 96 MG/DL (74-106); POTASSIUM SERUM 3.9 MMOL/L (3.5-5.1); SODIUM LEVEL 141 MMOL/L (136-145); TOTAL PROTEIN 4.8 G/DL (5.7-8.2)
[2023-12-12 07:46] VITALS: BP 102/59; TEMP 97.9; O2SAT 93
[2023-12-12 11:46] VITALS: BP 105/57; TEMP 98.3; O2SAT 96
[2023-12-12 15:50] VITALS: BP 104/61; TEMP 98.3; O2SAT 95
[2023-12-12] MEDS: FUROSEMIDE 40MG/4ML VIAL IV SCH (16:36)
[2023-12-12 23:51] VITALS: BP 100/68; TEMP 98.8; O2SAT 97
[2023-12-13] VITALS (9 sets, daily range): BP systolic 92–123; BP diastolic 53–71; TEMP 97.1–97.8; O2SAT 87–93
[2023-12-13 06:17] LABS: HEMATOCRIT 28.4 % (36.0-47.0); HEMOGLOBIN 9.3 g/dl (12.0-15.5); MEAN CORPUSCULAR HEMOGLOBIN 29.6 pg (27.0-33.0); MEAN CORPUSCULAR HGB CONC 32.7 g/dl (32.0-36.5); MEAN CORPUSCULAR VOLUME 90.4 fl (80.0-96.0); PLATELET COUNT, AUTOMATED 379 10^3/uL (150-450); RED BLOOD COUNT 3.14 10^6/uL (4.00-5.40)
[2023-12-13 06:41] LABS: ALBUMIN 1.5 G/DL (3.2-5.2); ALKALINE PHOSPHATASE 104 U/L (46-116); ALT/SGPT 21 U/L (7.0-40); AST/SGOT 14 U/L (<34); BILIRUBIN,TOTAL 0.5 MG/DL (0.3-1.2); BLOOD UREA NITROGEN 13 MG/DL (9-23); CALCIUM LEVEL 8.7 MG/DL (8.3-10.6); CARBON DIOXIDE LEVEL 30 MMOL/L (20-31); CHLORIDE LEVEL 102 MMOL/L (98-107); CREATININE FOR GFR 0.72 MG/DL (0.55-1.30); GLOMERULAR FILTRATION RATE > 60.0 (>39); GLUCOSE, FASTING 95 MG/DL (74-106); POTASSIUM SERUM 3.3 MMOL/L (3.5-5.1); SODIUM LEVEL 137 MMOL/L (136-145); TOTAL PROTEIN 4.7 G/DL (5.7-8.2)
[2023-12-13] MEDS: POTASSIUM CHLORIDE 10MEQ SR TABLET PO ONE (08:43)
[2023-12-13 11:59] LABS: PROCALCITONIN 0.08 ng/ml
[2023-12-13] MEDS: NYSTATIN 500,000U/5ML SUSP UDC SS SCH (13:08)
[2023-12-13] MEDS: PERCOCET 5MG/325MG TAB PO ONE (17:19)
[2023-12-14 01:30] VITALS: BP 105/56; TEMP 97; O2SAT 94
[2023-12-14 05:36] LABS: BASO # 0.1 10^3/uL (0.0-0.2); BASO % 0.6 % (0.0-1.0); HEMATOCRIT 29.2 % (36.0-47.0); HEMOGLOBIN 9.3 g/dl (12.0-15.5); LYMPH # 2.2 10^3/uL (1.5-5.0); LYMPH % 16.2 % (24.0-44.0); MEAN CORPUSCULAR HEMOGLOBIN 29.2 pg (27.0-33.0); MEAN CORPUSCULAR HGB CONC 31.8 g/dl (32.0-36.5); MEAN CORPUSCULAR VOLUME 91.5 fl (80.0-96.0); MONO % 14.5 % (2.0-8.0); NEUTROPHILS # 8.5 10^3/uL (1.5-8.5); NEUTROPHILS % 61.1 % (36.0-66.0); PLATELET COUNT, AUTOMATED 420 10^3/uL (150-450); RED BLOOD COUNT 3.19 10^6/uL (4.00-5.40); WHITE BLOOD COUNT 13.8 10^3/uL (4.0-10.0)
[2023-12-14 05:46] LABS: BLOOD UREA NITROGEN 13 MG/DL (9-23); CALCIUM LEVEL 8.4 MG/DL (8.3-10.6); CARBON DIOXIDE LEVEL 34 MMOL/L (20-31); CHLORIDE LEVEL 100 MMOL/L (98-107); CREATININE FOR GFR 0.75 MG/DL (0.55-1.30); GLOMERULAR FILTRATION RATE > 60.0 (>39); GLUCOSE, FASTING 96 MG/DL (74-106); POTASSIUM SERUM 3.2 MMOL/L (3.5-5.1); SODIUM LEVEL 138 MMOL/L (136-145)
[2023-12-14 06:10] VITALS: BP 118/61; TEMP 97.1; O2SAT 93
[2023-12-14] MEDS: POTASSIUM CHLORIDE 10MEQ SR TABLET PO ONE (06:21)
[2023-12-14 07:31] VITALS: BP 117/61; TEMP 96.9; O2SAT 92
[2023-12-14] MEDS: AUGMENTIN 875 MG TAB PO SCH (08:10)
[2023-12-14] MEDS: KCL 10MEQ/100ML SWI (KRUN) 10 MEQ in IV 1 EA IV SCH (08:10)
[2023-12-14] MEDS: ASPIRIN 81MG ENTERIC TABLET PO SCH (08:10)
[2023-12-14] MEDS ORDERED: OXYC1TAB23 PO (09:40)
[2023-12-14] MEDS ORDERED: POTA-151 PO (09:40)
[2023-12-14] MEDS ORDERED: AMOX875T2 PO (09:40)
[2023-12-14] MEDS ORDERED: NYST-38 PO (09:40)
[2023-12-14] MEDS ORDERED: FURO20TA2 PO (09:40)
[2023-12-14] MEDS ORDERED: POTASSIUM CHLORIDE 10MEQ SR TABLET PO ONE (12:00)
== END 2023-12-14 13:09 | disposition home or self-care (01) | DRG 186 ==
LOC: M ED 08:36 → M ED INP 11:31 → M ICU 11:31 → M PCU 12-08 16:28
PROVIDERS: ADMIT Internal Medicine; ATTEND Internal Medicine
PROC: 0W9B30Z Drainage of Left Pleural Cavity with Drainage Device, Percutaneous Approach (ICD-10-PCS; 2023-12-07)
PROC: 30233N1 Transfusion of Nonautologous Red Blood Cells into Peripheral Vein, Percutaneous Approach (ICD-10-PCS; principal; 2023-12-08)
PROC: 3E0L3GC Introduction of Other Therapeutic Substance into Pleural Cavity, Percutaneous Approach (ICD-10-PCS; 2023-12-12)
DX: J90 Pleural effusion, not elsewhere classified (principal); J96.01 Acute respiratory failure with hypoxia; A41.9 Sepsis, unspecified organism; J18.9 Pneumonia, unspecified organism; J81.0 Acute pulmonary edema; C34.90 Malignant neoplasm of unspecified part of unspecified bronchus or lung; D68.9 Coagulation defect, unspecified; C77.1 Secondary and unspecified malignant neoplasm of intrathoracic lymph nodes; J98.11 Atelectasis; D84.9 Immunodeficiency, unspecified; I50.32 Chronic diastolic (congestive) heart failure; B37.0 Candidal stomatitis; I27.20 Pulmonary hypertension, unspecified; E66.9 Obesity, unspecified; G47.33 Obstructive sleep apnea (adult) (pediatric); M19.90 Unspecified osteoarthritis, unspecified site; D64.9 Anemia, unspecified; E87.6 Hypokalemia; G89.29 Other chronic pain; J94.2 Hemothorax; K21.9 Gastro-esophageal reflux disease without esophagitis; F39 Unspecified mood [affective] disorder; M54.9 Dorsalgia, unspecified; M79.7 Fibromyalgia; Z98.84 Bariatric surgery status; Z90.79 Acquired absence of other genital organ(s); Z96.659 Presence of unspecified artificial knee joint; Z80.3 Family history of malignant neoplasm of breast; Z86.711 Personal history of pulmonary embolism; Z87.891 Personal history of nicotine dependence; Z79.82 Long term (current) use of aspirin; Z79.891 Long term (current) use of opiate analgesic; Z79.899 Other long term (current) drug therapy; Z88.1 Allergy status to other antibiotic agents; Z88.8 Allergy status to other drugs, medicaments and biological substances

== ENCOUNTER 2023-12-20 12:09 | Inpatient (IN) | payer MEDICARE ==
[~2023-12-20] VITALS: Ht 160 cm; Wt 80.3 kg
[~2023-12-20 12:09] MED LIST changes: +AMOX875T2 PO; +FURO20TA2 PO; +LEVO1TAB39 PO; +NYST-38 PO; +OXYC1TAB23 PO; +POTA-151 PO
[2023-12-20] MEDS: PIPERACILLIN/TAZOBACTAM SOD 4.5 GM in D5W MINI-BAG PLUS 50 ML IV ONE (14:04)
[2023-12-20 14:16] LABS: BASO # 0.1 10^3/uL (0.0-0.2); BASO % 0.4 % (0.0-1.0); EOS # 0.1 10^3/uL (0.0-0.5); EOS % 0.6 % (0.0-3.0); HEMATOCRIT 31.9 % (36.0-47.0); HEMOGLOBIN 10.1 g/dl (12.0-15.5); LYMPH # 1.5 10^3/uL (1.5-5.0); MEAN CORPUSCULAR HEMOGLOBIN 28.9 pg (27.0-33.0); MEAN CORPUSCULAR HGB CONC 31.7 g/dl (32.0-36.5); MEAN CORPUSCULAR VOLUME 91.1 fl (80.0-96.0); MONO # 1.2 10^3/uL (0.0-0.8); MONO % 7.3 % (2.0-8.0); NEUTROPHILS # 13.8 10^3/uL (1.5-8.5); NEUTROPHILS % 81.6 % (36.0-66.0); PLATELET COUNT, AUTOMATED 618 10^3/uL (150-450); WHITE BLOOD COUNT 16.9 10^3/uL (4.0-10.0)
[2023-12-20 14:31] LABS: INR 1.36; PARTIAL THROMBOPLASTIN TIME 43.5 SECONDS (24.8-34.2); PROTHROMBIN TIME 16.3 SECONDS (12.5-14.5)
[2023-12-20 14:36] LABS: ALBUMIN 1.6 G/DL (3.2-5.2); ALKALINE PHOSPHATASE 119 U/L (46-116); ALT/SGPT 12 U/L (7.0-40); AST/SGOT 19 U/L (<34); BILIRUBIN,DIRECT 0.1 MG/DL (<0.4); BILIRUBIN,TOTAL 0.2 MG/DL (0.3-1.2); BLOOD UREA NITROGEN 13 MG/DL (9-23); CALCIUM LEVEL 8.8 MG/DL (8.3-10.6); CARBON DIOXIDE LEVEL 29 MMOL/L (20-31); CHLORIDE LEVEL 100 MMOL/L (98-107); CK-MB VALUE MASS < 1.0 NG/ML (<3.6); CPK CREATINE PHOSPHOKINASE 25 U/L (34-145); CREATININE FOR GFR 0.52 MG/DL (0.55-1.30); GLOMERULAR FILTRATION RATE > 60.0 (>39); GLUCOSE, FASTING 104 MG/DL (74-106); POTASSIUM SERUM 4.2 MMOL/L (3.5-5.1); SODIUM LEVEL 134 MMOL/L (136-145); TOTAL PROTEIN 5.3 G/DL (5.7-8.2)
[2023-12-20 14:38] LABS: THYROID STIMULATING HORMONE 1.264 uIU/ML (0.55-4.78)
[2023-12-20 14:39] LABS: FREE T4 1.24 NG/DL (0.89-1.76)
[2023-12-20] MEDS ORDERED: ISOVUE-370 76% 100ML VIAL As Ordered ONE (15:09)
[2023-12-20] MEDS: MORPHINE 2 MG/ML 1ML VIAL IV ONE (16:01)
[2023-12-20] MEDS: PERCOCET 5MG/325MG TAB PO ONE (17:00)
[2023-12-20] MEDS ORDERED: MOM 30ML SUSPENSION UDC PO PRN (17:10)
[2023-12-20] MEDS: LIDOCAINE 5% (LIDODERM) PATCH TD SCH (18:00)
[2023-12-20] MEDS ORDERED: LIDOCAINE 5% (LIDODERM) PATCH TD SCH (18:00)
[2023-12-20] MEDS ORDERED: MUCI600T31 PO (18:17)
[2023-12-20] MEDS ORDERED: POTA-298 PO (18:17)
[2023-12-20] MEDS ORDERED: PERCOCET PO (18:17)
[2023-12-20] MEDS ORDERED: LIDO1PAD TOP (18:17)
[2023-12-20] MEDS ORDERED: ALBU2.5V10 NEB (18:17)
[2023-12-20] MEDS ORDERED: NYST-38 PO (18:17)
[2023-12-20] MEDS ORDERED: FURO20TA2 PO (18:17)
[2023-12-20] MEDS ORDERED: HOME MED LIST COMPLETE! XX SCH (18:20)
[2023-12-20] MEDS: LORazepam 0.5 MG TAB PO ONE (19:02)
[2023-12-20 19:19] LABS: PROCALCITONIN 0.27 ng/ml
[2023-12-20] MEDS ORDERED: ALBUTEROL SULFATE 2.5MG/0.5ML INH NEB SOLN NEB SCH (19:35)
[2023-12-20] MEDS: PIPERACILLIN/TAZOBACTAM SOD 4.5 GM in D5W MINI-BAG PLUS 50 ML IV SCH (20:00)
[2023-12-20] MEDS ORDERED: PROHANCE 279.3MG/ML 15ML VIAL As Ordered ONE (20:04)
[2023-12-20] MEDS ORDERED: guaiFENesin ER TABLET 600 MG TAB PO SCH (21:00)
[2023-12-20 21:30] VITALS: BP 121/64; TEMP 97.6; O2SAT 96
[2023-12-20] MEDS: FORMOTEROL FUMARATE 20 MCG/2 ML INHALATION SOLUTION (PERFOROMIST) INH SCH (21:39)
[2023-12-20] MEDS: IPRATROPIUM 0.5MG/ALBUTEROL 2.5MG INH SOL UD 3ML (DUONEB) NEB SCH (21:39)
[2023-12-20] MEDS: GLYCOPYRROLATE INJ 0.2 MG/ML 2 ML VIAL NEB SCH (21:39)
[2023-12-20] MEDS: CYCLOBENZAPRINE 5MG TABLET PO SCH (21:52)
[2023-12-20] MEDS: PREGABALIN 75 MG CAP(LYRICA) PO SCH (21:52)
[2023-12-20] MEDS: guaiFENesin 200 MG TAB PO SCH (21:52)
[2023-12-20] MEDS: NYSTATIN 500,000U/5ML SUSP UDC PO SCH (21:52)
[2023-12-20] MEDS: busPIRone 5 MG TAB PO SCH (21:52)
[2023-12-20] MEDS: MORPHINE 15 MG SA TAB PO SCH (21:53)
[2023-12-20] MEDS: traZODone 100 MG TAB PO SCH (21:53)
[2023-12-20 22:00] VITALS: O2SAT 95
[2023-12-20 23:00] VITALS: O2SAT 95
[2023-12-20 23:41] VITALS: BP 113/57; TEMP 97.1; O2SAT 93
[2023-12-21] VITALS (18 sets, daily range): BP systolic 109–136; BP diastolic 58–86; TEMP 97–98.3; O2SAT 90–97
[2023-12-21] MEDS: PERCOCET 5MG/325MG TAB PO PRN (00:36)
[2023-12-21] MEDS: ACETAMINOPHEN TAB 650MG DOSE (2X325MG) PO PRN (04:28)
[2023-12-21 04:51] LABS: BASO # 0.1 10^3/uL (0.0-0.2); BASO % 0.4 % (0.0-1.0); EOS # 0.1 10^3/uL (0.0-0.5); EOS % 0.6 % (0.0-3.0); HEMATOCRIT 29.9 % (36.0-47.0); HEMOGLOBIN 9.6 g/dl (12.0-15.5); LYMPH # 1.6 10^3/uL (1.5-5.0); LYMPH % 10.1 % (24.0-44.0); MEAN CORPUSCULAR HEMOGLOBIN 29.4 pg (27.0-33.0); MEAN CORPUSCULAR HGB CONC 32.1 g/dl (32.0-36.5); MEAN CORPUSCULAR VOLUME 91.7 fl (80.0-96.0); MONO # 1.6 10^3/uL (0.0-0.8); NEUTROPHILS # 12.2 10^3/uL (1.5-8.5); NEUTROPHILS % 77.2 % (36.0-66.0); PLATELET COUNT, AUTOMATED 606 10^3/uL (150-450); RED BLOOD COUNT 3.26 10^6/uL (4.00-5.40); WHITE BLOOD COUNT 15.8 10^3/uL (4.0-10.0)
[2023-12-21 05:21] LABS: ALBUMIN 1.5 G/DL (3.2-5.2); ALKALINE PHOSPHATASE 113 U/L (46-116); ALT/SGPT 11 U/L (7.0-40); AST/SGOT 18 U/L (<34); BILIRUBIN,TOTAL 0.3 MG/DL (0.3-1.2); BLOOD UREA NITROGEN 12 MG/DL (9-23); CALCIUM LEVEL 8.7 MG/DL (8.3-10.6); CARBON DIOXIDE LEVEL 30 MMOL/L (20-31); CHLORIDE LEVEL 100 MMOL/L (98-107); CREATININE FOR GFR 0.54 MG/DL (0.55-1.30); GLOMERULAR FILTRATION RATE > 60.0 (>39); GLUCOSE, FASTING 98 MG/DL (74-106); MAGNESIUM LEVEL 1.8 MG/DL (1.8-2.4); POTASSIUM SERUM 4.2 MMOL/L (3.5-5.1); SODIUM LEVEL 135 MMOL/L (136-145)
[2023-12-21] MEDS: guaiFENesin SYRUP 200MG 10ML UDC PO SCH (08:56)
[2023-12-21] MEDS: DULoxetine 20MG CAP (CYMBALTA) PO SCH (08:56)
[2023-12-21] MEDS: ASPIRIN 81MG ENTERIC TABLET PO SCH (09:00)
[2023-12-21] MEDS: SUCRALFATE 1 GM TAB PO SCH (09:00)
[2023-12-21] MEDS: POTASSIUM CHLORIDE 10MEQ SR TABLET PO SCH (09:00)
[2023-12-21] MEDS: OMEPRAZOLE 20MG CAP PO SCH (09:00)
[2023-12-21] MEDS: MORPHINE 2 MG/ML 1ML VIAL IV ONE (10:30)
[2023-12-21] MEDS ORDERED: fentaNYL 100 MCG/2 ML INJECTION As Ordered ONE (13:01)
[2023-12-21] MEDS: fentaNYL 100 MCG/2 ML INJECTION IV PRN (13:01)
[2023-12-21] MEDS: CETACAINE SPRAY 5GM As Ordered ONE (13:25)
[2023-12-21] MEDS: EPINEPHrine 1MG/10ML SYRINGE 1.5IN As Ordered ONE (13:34)
[2023-12-21] MEDS ORDERED: ONDANSETRON 4MG 2ML VIAL IV PRN (13:50)
[2023-12-21] MEDS ORDERED: fentaNYL 100 MCG/2 ML INJECTION IV PRN (13:50)
[2023-12-21] MEDS ORDERED: oxyCODONE 5MG TAB PO PRN (13:50)
[2023-12-21] MEDS ORDERED: HYDROMORPHONE HCL 0.5 MG/ 0.5 ML SYRINGE IV PRN (13:50)
[2023-12-21] MEDS: predniSONE 20 MG TAB PO SCH (15:47)
[2023-12-22] VITALS (14 sets, daily range): BP systolic 110–128; BP diastolic 55–74; TEMP 96.7–97.8; O2SAT 86–96
[2023-12-22 06:12] LABS: BASO % 0.1 % (0.0-1.0); HEMOGLOBIN 10.1 g/dl (12.0-15.5); LYMPH # 1.1 10^3/uL (1.5-5.0); LYMPH % 7.9 % (24.0-44.0); MEAN CORPUSCULAR HEMOGLOBIN 28.7 pg (27.0-33.0); MEAN CORPUSCULAR HGB CONC 31.6 g/dl (32.0-36.5); MEAN CORPUSCULAR VOLUME 90.9 fl (80.0-96.0); MONO # 0.9 10^3/uL (0.0-0.8); MONO % 6.5 % (2.0-8.0); NEUTROPHILS # 11.5 10^3/uL (1.5-8.5); NEUTROPHILS % 83.7 % (36.0-66.0); PLATELET COUNT, AUTOMATED 691 10^3/uL (150-450); RED BLOOD COUNT 3.52 10^6/uL (4.00-5.40); WHITE BLOOD COUNT 13.7 10^3/uL (4.0-10.0)
[2023-12-22 06:38] LABS: ALBUMIN 1.7 G/DL (3.2-5.2); ALKALINE PHOSPHATASE 128 U/L (46-116); ALT/SGPT 14 U/L (7.0-40); AST/SGOT 19 U/L (<34); BILIRUBIN,TOTAL 0.3 MG/DL (0.3-1.2); BLOOD UREA NITROGEN 13 MG/DL (9-23); CALCIUM LEVEL 9.5 MG/DL (8.3-10.6); CARBON DIOXIDE LEVEL 29 MMOL/L (20-31); CHLORIDE LEVEL 100 MMOL/L (98-107); CREATININE FOR GFR 0.52 MG/DL (0.55-1.30); GLOMERULAR FILTRATION RATE > 60.0 (>39); GLUCOSE, FASTING 134 MG/DL (74-106); MAGNESIUM LEVEL 1.9 MG/DL (1.8-2.4); POTASSIUM SERUM 5.1 MMOL/L (3.5-5.1); SODIUM LEVEL 136 MMOL/L (136-145); TOTAL PROTEIN 5.5 G/DL (5.7-8.2)
[2023-12-22] MEDS: LIDOCAINE 5% (LIDODERM) PATCH TD SCH (14:57)
[2023-12-22] MEDS: MORPHINE 4 MG/ML 1ML VIAL IV ONE (16:00)
[2023-12-22] MEDS: HYDROMORPHONE HCL 0.5 MG/ 0.5 ML SYRINGE IV PRN (18:39)
[2023-12-23] VITALS (8 sets, daily range): BP systolic 104–121; BP diastolic 56–76; TEMP 96.9–97.9; O2SAT 92–100
[2023-12-23] MEDS: PREGABALIN 75 MG CAP(LYRICA) PO ONE (01:55)
[2023-12-23] MEDS: KETOROLAC 30 MG/ML 1ML VIAL IV ONE (01:55)
[2023-12-23 05:56] LABS: BASO % 0.1 % (0.0-1.0); EOS % 0.2 % (0.0-3.0); HEMATOCRIT 28.9 % (36.0-47.0); HEMOGLOBIN 9.1 g/dl (12.0-15.5); LYMPH # 1.7 10^3/uL (1.5-5.0); LYMPH % 10.1 % (24.0-44.0); MEAN CORPUSCULAR HEMOGLOBIN 29.2 pg (27.0-33.0); MEAN CORPUSCULAR HGB CONC 31.5 g/dl (32.0-36.5); MEAN CORPUSCULAR VOLUME 92.6 fl (80.0-96.0); MONO # 1.4 10^3/uL (0.0-0.8); MONO % 8.3 % (2.0-8.0); NEUTROPHILS # 13.2 10^3/uL (1.5-8.5); NEUTROPHILS % 79.7 % (36.0-66.0); PLATELET COUNT, AUTOMATED 592 10^3/uL (150-450); RED BLOOD COUNT 3.12 10^6/uL (4.00-5.40); WHITE BLOOD COUNT 16.6 10^3/uL (4.0-10.0)
[2023-12-23 06:16] LABS: ALBUMIN 1.7 G/DL (3.2-5.2); ALKALINE PHOSPHATASE 105 U/L (46-116); ALT/SGPT 35 U/L (7.0-40); AST/SGOT 95 U/L (<34); BILIRUBIN,TOTAL 0.2 MG/DL (0.3-1.2); BLOOD UREA NITROGEN 14 MG/DL (9-23); CALCIUM LEVEL 9.5 MG/DL (8.3-10.6); CARBON DIOXIDE LEVEL 32 MMOL/L (20-31); CHLORIDE LEVEL 99 MMOL/L (98-107); CREATININE FOR GFR 0.56 MG/DL (0.55-1.30); GLOMERULAR FILTRATION RATE > 60.0 (>39); GLUCOSE, FASTING 91 MG/DL (74-106); MAGNESIUM LEVEL 1.9 MG/DL (1.8-2.4); POTASSIUM SERUM 4.4 MMOL/L (3.5-5.1); SODIUM LEVEL 135 MMOL/L (136-145); TOTAL PROTEIN 5.1 G/DL (5.7-8.2)
[2023-12-23 08:06] LABS: PROCALCITONIN 0.15 ng/ml
[2023-12-23] MEDS: PREGABALIN 50 MG CAP (LYRICA) PO SCH (08:18)
[2023-12-23] MEDS: predniSONE 10MG TAB PO SCH (08:18)
[2023-12-23] MEDS: DULoxetine 20MG CAP (CYMBALTA) PO SCH (08:18)
[2023-12-23] MEDS: MORPHINE 30 MG SA TAB PO SCH (08:19)
[2023-12-23] MEDS ORDERED: MIRALAX *UNIT DOSE* 17GM PACKET PO PRN (09:35)
[2023-12-23] MEDS: HYDROMORPHONE HCL 0.5 MG/ 0.5 ML SYRINGE IV PRN (09:40)
[2023-12-23] MEDS: LIDOCAINE 5% (LIDODERM) PATCH TD SCH (10:04)
[2023-12-23] MEDS: DOCUSATE SODIUM 100MG CAPSULE PO SCH (10:04)
[2023-12-23] MEDS: KETOROLAC 30 MG/ML 1ML VIAL IV SCH (11:45)
[2023-12-23] MEDS: MIRALAX *UNIT DOSE* 17GM PACKET PO SCH (11:46)
[2023-12-23] MEDS: SENNA 8.6 MG TAB (SENOKOT) PO SCH (11:46)
[2023-12-23] MEDS: ACETAMINOPHEN 500 MG TAB PO SCH (13:22)
[2023-12-23] MEDS: HEPARIN SOD (PORCINE) 5000UNITS/ML 1ML VIAL/SYRINGE SQ SCH (13:22)
[2023-12-23] MEDS: LORazepam 1 MG TAB PO PRN (16:04)
[2023-12-23] MEDS ORDERED: PILL CUTTER 1 EACH XX PRN (16:30)
[2023-12-23 18:57] LABS: VENOUS BASE EXCESS 2.2 (-2.0-2.0); VENOUS HCO3 26.3 MMOL/L (23.0-27.0); VENOUS O2 SATURATION 99.1 % (60.0-80.0); VENOUS PARTIAL PRESSURE CO2 38.9 mmHg (38.0-50.0); VENOUS PARTIAL PRESSURE O2 200.1 mmHg (30.0-50.0); VENOUS PH 7.448 UNITS (7.330-7.430); VENOUS STANDARD HCO3 26.5 MMOL/L; VENOUS TOTAL CO2 27.5 MMOL/L (24.0-28.0)
[2023-12-23] MEDS: METAMUCIL (PSYLLIUM) PACKET PO SCH (21:00)
[2023-12-24 00:12] VITALS: BP 135/62; TEMP 97.1; O2SAT 94
[2023-12-24 04:08] VITALS: BP 119/61; TEMP 97.3; O2SAT 94
[2023-12-24 06:00] LABS: BASO % 0.1 % (0.0-1.0); EOS # 0.1 10^3/uL (0.0-0.5); EOS % 0.6 % (0.0-3.0); HEMATOCRIT 29.9 % (36.0-47.0); HEMOGLOBIN 9.3 g/dl (12.0-15.5); LYMPH # 1.7 10^3/uL (1.5-5.0); LYMPH % 11.5 % (24.0-44.0); MEAN CORPUSCULAR HEMOGLOBIN 28.6 pg (27.0-33.0); MEAN CORPUSCULAR HGB CONC 31.1 g/dl (32.0-36.5); MONO # 1.5 10^3/uL (0.0-0.8); MONO % 10.1 % (2.0-8.0); NEUTROPHILS # 11.5 10^3/uL (1.5-8.5); NEUTROPHILS % 76.4 % (36.0-66.0); PLATELET COUNT, AUTOMATED 579 10^3/uL (150-450); RED BLOOD COUNT 3.25 10^6/uL (4.00-5.40)
[2023-12-24 06:26] LABS: ALBUMIN 1.7 G/DL (3.2-5.2); ALKALINE PHOSPHATASE 107 U/L (46-116); ALT/SGPT 52 U/L (7.0-40); AST/SGOT 75 U/L (<34); BILIRUBIN,TOTAL 0.3 MG/DL (0.3-1.2); BLOOD UREA NITROGEN 19 MG/DL (9-23); CALCIUM LEVEL 9.7 MG/DL (8.3-10.6); CARBON DIOXIDE LEVEL 30 MMOL/L (20-31); CHLORIDE LEVEL 102 MMOL/L (98-107); GLOMERULAR FILTRATION RATE > 60.0 (>39); GLUCOSE, FASTING 86 MG/DL (74-106); POTASSIUM SERUM 4.6 MMOL/L (3.5-5.1); SODIUM LEVEL 137 MMOL/L (136-145); TOTAL PROTEIN 5.1 G/DL (5.7-8.2)
[2023-12-24 07:57] VITALS: BP 120/58; TEMP 96.9; O2SAT 93
[2023-12-24] MEDS ORDERED: PREG50CA PO ×2 (10:18→10:36)
[2023-12-24] MEDS ORDERED: SENO8.6T5 PO (10:18)
[2023-12-24] MEDS ORDERED: MSIR30TA PO (10:18)
[2023-12-24] MEDS ORDERED: PRED10TA2 PO (10:18)
[2023-12-24] MEDS ORDERED: MORP30TASA PO ×2 (10:18→10:36)
[2023-12-24] MEDS ORDERED: ACET-683 PO (10:18)
[2023-12-24] MEDS ORDERED: MIRA33506 PO (10:18)
[2023-12-24] MEDS ORDERED: DULO1CAP4 PO (10:18)
[2023-12-24] MEDS ORDERED: MORP15TA2 PO (10:36)
[2023-12-24] MEDS: MORPHINE 30 MG TAB **MSIR PO PRN (14:28)
== END 2023-12-24 14:47 | disposition home or self-care (01) | DRG 181 ==
LOC: M ED 12:09 → M ED INP 17:45 → M PCU 21:30
PROVIDERS: ADMIT Student in an Organized Health Care Education/Training Program; ATTEND Student in an Organized Health Care Education/Training Program
PROC: 0BB88ZX Excision of Left Upper Lobe Bronchus, Via Natural or Artificial Opening Endoscopic, Diagnostic (ICD-10-PCS; principal; 2023-12-21 13:35)
DX: C34.12 Malignant neoplasm of upper lobe, left bronchus or lung (principal); I50.32 Chronic diastolic (congestive) heart failure; J91.0 Malignant pleural effusion; J96.11 Chronic respiratory failure with hypoxia; Z66 Do not resuscitate; G47.33 Obstructive sleep apnea (adult) (pediatric); I27.20 Pulmonary hypertension, unspecified; D64.9 Anemia, unspecified; M19.90 Unspecified osteoarthritis, unspecified site; M79.7 Fibromyalgia; G89.29 Other chronic pain; K21.9 Gastro-esophageal reflux disease without esophagitis; K59.00 Constipation, unspecified; F39 Unspecified mood [affective] disorder; F41.9 Anxiety disorder, unspecified; Z87.891 Personal history of nicotine dependence; Z98.84 Bariatric surgery status; Z90.79 Acquired absence of other genital organ(s); Z96.659 Presence of unspecified artificial knee joint; Z99.81 Dependence on supplemental oxygen; Z79.82 Long term (current) use of aspirin; Z79.891 Long term (current) use of opiate analgesic; Z79.899 Other long term (current) drug therapy; Z88.1 Allergy status to other antibiotic agents; Z88.8 Allergy status to other drugs, medicaments and biological substances

== ENCOUNTER → 2023-12-23 | Outpatient (RCR) | payer MEDICARE ==
[~2023-12-23] MED LIST changes: +ACET-683 PO; +ALBU2.5V10 NEB; +CYAN-11 PO; +DEXA4TA PO; +FOLI1TAB11 PO; +FURO40TA2 PO; +LIDO1PAD TOP; +MIRA33506 PO; +MORP15TA2 PO; +MORP30TASA PO; +MSIR30TA PO; +MUCI600T31 PO; +ONDA-284 PO; +PERCOCET PO; +POTA-298 PO; +PRED10TA2 PO; +PREG50CA PO; +SENO8.6T5 PO
== END ==
LOC: M ONCR 12-22 12:00
PROVIDERS: ATTEND General Practice
DX: C34.12 Malignant neoplasm of upper lobe, left bronchus or lung (principal)

== ENCOUNTER → 2023-12-26 | Outpatient (CLI) | payer MEDICARE ==
[~2023-12-26] MED LIST changes: -ONDA-284 PO; +ONDA8TAB8 PO
== END ==
LOC: M PLARAD 10:53
PROVIDERS: ATTEND Internal Medicine Hematology & Oncology
DX: C34.91 Malignant neoplasm of unspecified part of right bronchus or lung (principal); C34.32 Malignant neoplasm of lower lobe, left bronchus or lung
CPT/HCPCS: 78815; A9552

== ENCOUNTER → 2024-01-04 | Outpatient (CLI) | payer MEDICARE ==
[~2024-01-04] VITALS: Ht 160 cm; Wt 79.7 kg
[~2024-01-04] MED LIST changes: +MM S100C PO; +ONDA-284 PO; -ONDA8TAB8 PO
[2024-01-04 11:56] VITALS: BP 133/91; O2SAT 96
== END ==
LOC: M PAL 11:02
PROVIDERS: ATTEND Nurse Practitioner Adult Health
DX: C34.92 Malignant neoplasm of unspecified part of left bronchus or lung (principal); I49.9 Cardiac arrhythmia, unspecified; G89.3 Neoplasm related pain (acute) (chronic); R06.00 Dyspnea, unspecified; K59.00 Constipation, unspecified; F17.210 Nicotine dependence, cigarettes, uncomplicated; Z66 Do not resuscitate; Z51.5 Encounter for palliative care; Z88.1 Allergy status to other antibiotic agents; Z88.8 Allergy status to other drugs, medicaments and biological substances; J30.2 Other seasonal allergic rhinitis; Z79.82 Long term (current) use of aspirin; Z79.891 Long term (current) use of opiate analgesic; Z79.899 Other long term (current) drug therapy; Z80.0 Family history of malignant neoplasm of digestive organs; Z80.3 Family history of malignant neoplasm of breast; Z90.49 Acquired absence of other specified parts of digestive tract; Z92.3 Personal history of irradiation; Z90.710 Acquired absence of both cervix and uterus; Z96.659 Presence of unspecified artificial knee joint; Z98.84 Bariatric surgery status; Z99.81 Dependence on supplemental oxygen

== ENCOUNTER 2024-01-05 10:59 | Outpatient (RCR) | payer MEDICARE ==
[2024-01-10] MEDS ORDERED: DULO1CAP4 PO (15:55)
[2024-01-10] MEDS ORDERED: SUCR1TA PO (15:55)
[2024-01-17] MEDS ORDERED: FURO40TA2 PO (18:38)
[2024-01-17] MEDS ORDERED: B-12100021 PO (18:38)
[2024-01-17] MEDS ORDERED: MORP30TASA PO (18:38)
[2024-01-17] MEDS ORDERED: MORP15TA2 PO (18:38)
[2024-01-17] MEDS ORDERED: FOLI1TAB11 PO (18:38)
[2024-01-17] MEDS ORDERED: PREG50CA PO (18:38)
[2024-01-17] MEDS ORDERED: ONDA-84 PO (18:42)
[2024-01-17] MEDS ORDERED: ACET-683 PO (18:42)
== END 2024-01-20 ==
LOC: M ONCR 10:59
PROVIDERS: ATTEND General Practice
DX: Z51.0 Encounter for antineoplastic radiation therapy (principal); C34.12 Malignant neoplasm of upper lobe, left bronchus or lung

== ENCOUNTER → 2024-01-16 | Outpatient (CLI) | payer MEDICARE ==
[~2024-01-16] MED LIST changes: +B-12100021 PO; +ONDA-84 PO
[2024-01-16 11:51] LABS: BASO % 0.1 % (0.0-1.0); EOS % 0.2 % (0.0-3.0); HEMATOCRIT 35.1 % (36.0-47.0); HEMOGLOBIN 11.2 g/dl (12.0-15.5); LYMPH # 0.8 10^3/uL (1.5-5.0); LYMPH % 4.5 % (24.0-44.0); MEAN CORPUSCULAR HGB CONC 31.9 g/dl (32.0-36.5); MEAN CORPUSCULAR VOLUME 87.8 fl (80.0-96.0); MONO # 1.2 10^3/uL (0.0-0.8); MONO % 7.3 % (2.0-8.0); NEUTROPHILS # 14.3 10^3/uL (1.5-8.5); NEUTROPHILS % 85.4 % (36.0-66.0); PLATELET COUNT, AUTOMATED 441 10^3/uL (150-450); WHITE BLOOD COUNT 16.7 10^3/uL (4.0-10.0)
[2024-01-16 12:14] LABS: ALBUMIN 1.7 G/DL (3.2-5.2); ALKALINE PHOSPHATASE 140 U/L (46-116); ALT/SGPT 15 U/L (7.0-40); AST/SGOT 21 U/L (<34); BILIRUBIN,TOTAL 0.5 MG/DL (0.3-1.2); BLOOD UREA NITROGEN 19 MG/DL (9-23); CALCIUM LEVEL 10.4 MG/DL (8.3-10.6); CARBON DIOXIDE LEVEL 33 MMOL/L (20-31); CHLORIDE LEVEL 86 MMOL/L (98-107); CREATININE FOR GFR 0.51 MG/DL (0.55-1.30); GLOMERULAR FILTRATION RATE > 60.0 (>39); GLUCOSE, FASTING 76 MG/DL (74-106); IRON (FE) 24 UG/DL (50-170); PERCENT SATURATION 13.7 % (13.2-45.0); POTASSIUM SERUM 4.1 MMOL/L (3.5-5.1); SODIUM LEVEL 129 MMOL/L (136-145); TOTAL IRON BINDING CAPACITY 175 UG/DL (250-425); TOTAL PROTEIN 5.3 G/DL (5.7-8.2)
[2024-01-16 12:17] LABS: FERRITIN 292.2 NG/ML (7.3-270.7)
== END ==
LOC: M IRPRO 10:50
PROVIDERS: ATTEND Internal Medicine Hematology & Oncology
DX: C34.92 Malignant neoplasm of unspecified part of left bronchus or lung (principal)

== ENCOUNTER 2024-01-17 08:58 | Inpatient (IN) | payer MEDICARE ==
[~2024-01-17] VITALS: Ht 160 cm; Wt 77.3 kg
[~2024-01-17 08:58] MED LIST changes: -B-12100021 PO; -ONDA-84 PO
[2024-01-17 09:07] VITALS: TEMP 97.1
[2024-01-17 09:42] LABS: BASO % 0.1 % (0.0-1.0); HEMATOCRIT 33.7 % (36.0-47.0); HEMOGLOBIN 10.7 g/dl (12.0-15.5); LYMPH # 0.3 10^3/uL (1.5-5.0); LYMPH % 1.3 % (24.0-44.0); MEAN CORPUSCULAR HEMOGLOBIN 28.4 pg (27.0-33.0); MEAN CORPUSCULAR HGB CONC 31.8 g/dl (32.0-36.5); MEAN CORPUSCULAR VOLUME 89.4 fl (80.0-96.0); MONO % 5.2 % (2.0-8.0); NEUTROPHILS # 16.9 10^3/uL (1.5-8.5); PLATELET COUNT, AUTOMATED 418 10^3/uL (150-450); RED BLOOD COUNT 3.77 10^6/uL (4.00-5.40); WHITE BLOOD COUNT 18.7 10^3/uL (4.0-10.0)
[2024-01-17 09:52] LABS: INR 1.34; PROTHROMBIN TIME 16.2 SECONDS (12.5-14.5)
[2024-01-17 10:04] LABS: BLOOD UREA NITROGEN 20 MG/DL (9-23); CALCIUM LEVEL 9.8 MG/DL (8.3-10.6); CARBON DIOXIDE LEVEL 32 MMOL/L (20-31); CHLORIDE LEVEL 88 MMOL/L (98-107); CREATININE FOR GFR 0.55 MG/DL (0.55-1.30); GLOMERULAR FILTRATION RATE > 60.0 (>39); GLUCOSE, FASTING 141 MG/DL (74-106); POTASSIUM SERUM 4.1 MMOL/L (3.5-5.1); SODIUM LEVEL 131 MMOL/L (136-145)
[2024-01-17 11:49] VITALS: BP 112/68
[2024-01-17] MEDS: ONDANSETRON 4MG 2ML VIAL IV ONE (15:16)
[2024-01-17] MEDS: MORPHINE 2 MG/ML 1ML VIAL IV PRN (15:16)
[2024-01-17] MEDS: NS 1,000 ML IV SCH (15:16)
[2024-01-17] MEDS: diazePAM 10MG/2ML SYRINGE IV ONE (16:22)
[2024-01-17 16:24] VITALS: O2SAT 94
[2024-01-17] MEDS ORDERED: ONDANSETRON 4MG ORAL DISINTEGRATING TAB PO PRN (16:55)
[2024-01-17] MEDS ORDERED: fentaNYL 75 MCG/HR PATCH TOP SCH (16:55)
[2024-01-17] MEDS ORDERED: BISACODYL 10MG SUPP PR PRN (16:55)
[2024-01-17] MEDS ORDERED: B-12100021 PO (18:38)
[2024-01-17] MEDS ORDERED: FOLI1TAB11 PO (18:38)
[2024-01-17] MEDS ORDERED: MORP30TASA PO (18:38)
[2024-01-17] MEDS ORDERED: MORP15TA2 PO (18:38)
[2024-01-17] MEDS ORDERED: PREG50CA PO (18:38)
[2024-01-17] MEDS ORDERED: FURO40TA2 PO (18:38)
[2024-01-17] MEDS ORDERED: ACET-683 PO (18:42)
[2024-01-17] MEDS ORDERED: ONDA-84 PO (18:42)
[2024-01-17] MEDS ORDERED: HOME MED LIST COMPLETE! XX SCH (18:45)
[2024-01-17] MEDS: LORazepam 1 MG TAB PO PRN (19:59)
[2024-01-17] MEDS: MORPHINE 10MG/0.5ML ORAL CONCENTRATE SOLUTION U/D SL PRN (20:00)
[2024-01-17] MEDS: fentaNYL 25 MCG/HR PATCH TOP SCH (23:39)
[2024-01-18] MEDS: MORPHINE 10MG/0.5ML ORAL CONCENTRATE SOLUTION U/D SL PRN ×2 (15:33→19:42)
[2024-01-18] MEDS ORDERED: MORPHINE 10MG/0.5ML ORAL CONCENTRATE SOLUTION U/D SL SCH (16:35)
[2024-01-18] MEDS: fentaNYL 50 MCG/HR PATCH TOP SCH (18:12)
[2024-01-18] MEDS: MORPHINE 10MG/0.5ML ORAL CONCENTRATE SOLUTION U/D SL SCH (21:19)
[2024-01-19] MEDS: PREGABALIN 100 MG CAP (LYRICA) PO SCH (09:00)
[2024-01-19] MEDS: FENTANYL REMOVAL DOCUMENTATION MISC XX SCH (09:54)
[2024-01-19] MEDS: fentaNYL 75 MCG/HR PATCH TOP SCH (09:54)
[2024-01-19] MEDS: LIDOCAINE 5% (LIDODERM) PATCH TD SCH (13:50)
[2024-01-19] MEDS: MORPHINE 10MG/0.5ML ORAL CONCENTRATE SOLUTION U/D SL SCH (13:51)
[2024-01-19] MEDS: LORazepam 1 MG TAB PO PRN (15:27)
[2024-01-19] MEDS: rOPINIRole 0.25 MG TAB(REQUIP) PO SCH (16:00)
[2024-01-19] MEDS: SCOPOLAMINE 1MG TRANSDERMAL PATCH TOP PRN (17:56)
[2024-01-21] MEDS ORDERED: FENTANYL REMOVAL DOCUMENTATION MISC XX SCH (18:00)
== END 2024-01-20 01:45 | disposition expired | DRG 533 ==
LOC: M ED 08:58 → EDBD 08:58 → M ED INP 18:07 → M MS4PR 01-18 14:20 → M MS5PR 01-19 11:55
PROVIDERS: ADMIT Student in an Organized Health Care Education/Training Program; ATTEND Student in an Organized Health Care Education/Training Program
DX: S72.351A Displaced comminuted fracture of shaft of right femur, initial encounter for closed fracture (principal); J96.21 Acute and chronic respiratory failure with hypoxia; J96.22 Acute and chronic respiratory failure with hypercapnia; C34.92 Malignant neoplasm of unspecified part of left bronchus or lung; I50.32 Chronic diastolic (congestive) heart failure; J90 Pleural effusion, not elsewhere classified; C79.89 Secondary malignant neoplasm of other specified sites; G47.33 Obstructive sleep apnea (adult) (pediatric); I27.20 Pulmonary hypertension, unspecified; D64.9 Anemia, unspecified; M19.90 Unspecified osteoarthritis, unspecified site; M79.7 Fibromyalgia; R57.1 Hypovolemic shock; Z66 Do not resuscitate; Z51.5 Encounter for palliative care; G89.29 Other chronic pain; K21.9 Gastro-esophageal reflux disease without esophagitis; F39 Unspecified mood [affective] disorder; D35.02 Benign neoplasm of left adrenal gland; Z98.84 Bariatric surgery status; Z99.81 Dependence on supplemental oxygen; Z98.1 Arthrodesis status; Z96.659 Presence of unspecified artificial knee joint; Z79.82 Long term (current) use of aspirin; Z79.899 Other long term (current) drug therapy; Z88.1 Allergy status to other antibiotic agents; Z88.8 Allergy status to other drugs, medicaments and biological substances; Z86.711 Personal history of pulmonary embolism; Z87.891 Personal history of nicotine dependence; W18.09XA Striking against other object with subsequent fall, initial encounter; Y92.008 Other place in unspecified non-institutional (private) residence as the place of occurrence of the external cause; Y93.9 Activity, unspecified; Y99.8 Other external cause status